=== PATIENT | male | born 1975 | race Caucasian/White ===

== ENCOUNTER 2019-09-21 23:26 | Observation (INO) ==
[2019-09-21 23:49] LABS: Basophils # 0.1 K/mm3 (0-0.2); Basophils % 0.9 % (0.1-2.0); Eosinophils # 0.6 K/mm3 (0.0-0.4); Eosinophils % 4.4 % (0.1-12.0); Hematocrit 42.2 % (42.0-52.0); Hemoglobin 14.4 g/dL (14.1-18.0); Lymphocytes # 2.9 K/mm3 (0.7-4.5); Lymphocytes % 21.3 % (10-50); Mean Corpuscular HGB Conc 34.1 g/dL (31.8-35.4); Mean Corpuscular Volume 92.9 fl (80-94); Mean Platelet Volume 8.6 fl (7.4-10.4); Monocytes # 0.9 K/mm3 (0.1-1.0); Monocytes % 6.4 % (1.7-9.3); Neutrophils % 67.1 % (37.0-80.0); Platelet Count 310 K/mm3 (142-424); Red Blood Count 4.55 M/mm3 (4.60-6.20); Red Cell Distribution Width 12.9 % (11.5-17.5); White Blood Count 13.5 K/mm3 (4.8-10.8)
--- NOTE | 2019-09-21 23:52 | Emergency Department Note ---
ED Disposition Clinical Impression: Coronary arteriosclerosis, Obesity (BMI 30-39.9), Tobacco use Chest pain Qualifiers: Chest pain type: other chest pain Qualified Code(s): R07.89 - Other chest pain Diabetes mellitus Qualifiers: Diabetes mellitus type: type 2 Diabetes mellitus assisted insulin use: unspecified assisted insulin use status Diabetes mellitus complication status: with other specified complication Qualified Code(s): E11.69 - Type 2 diabetes mellitus with other specified complication Disposition: Admitted as Observation Condition on Discharge: Good Referrals: Provider,Referral, [Referring] - - Critical Care Critical Care Time: No Attestation: On 09/21/19, the high probability of a clinically significant, sudden or life threatening deterioration of the following system(s) required my full and direct attention, intervention and personal management. The time I documented below is in addition to time spent performing reported procedures but includes the following listed in this critical care notation. Medical Decision Making - Medical Records Medical records reviewed: Yes: I reviewed the patient's medical records. - [place] Inquiry Pt receiving controlled substance: No Vital Signs: 09/21/19 23:26 09/22/19 00:29 Temperature 98.2 F Temperature Source Oral Pulse Rate [Right Radial] 91 H 88 Respiratory Rate 18 16 Blood Pressure [Left Arm] 171/89 H 148/87 H Blood Pressure Mean [Left Arm] 116 107 02 Sat by Pulse Oximetry 97 97 Oxygen Delivery Method Room Air Room Air - Lab Data Lab results reviewed: Yes: I reviewed the patient's lab results. Lab Results 09/21/19 23:33: WBC 13.5 H, RBC 4.55 L, Hgb 14.4, Hct 42.2, MCV 92.9, MCH 31.6 H , MCHC 34.1, RDW 12.9, Plt Count 310, MPV 8.6, Neut % (Auto) 67.1, Lymph % (Auto) 21.3, [place] % (Auto) 6.4, Eos % (Auto) 4.4, Baso % (Auto) 0.9, Neut # (Auto) 9.0 H, Lymph # (Auto) 2.9, [place] # (Auto) 0.9, Eos # (Auto) 0.6 H, Baso # (Auto) 0.1, ESR 27 H 09/21/19 23:33: Sodium 137, Potassium 4.6, Chloride 102, Carbon Dioxide 24, Anion Gap 15.6 H, BUN 14, Creatinine 1.10, Estimated Creat Clear 136, Estimated GFR 72, Est GFR ( Amer) 88, Glucose 169 H, Calcium 8.8, Total Bilirubin 0.4, AST 38 H, ALT 52, Alkaline Phosphatase 138 H, Troponin I < 0.02, C-Reactive Protein 0.8, Total Protein 7.8, Albumin 4.0, Globulin 3.8 H, Albumin/Globulin Ratio 1.1 09/22/19 00:30: Urine Color Yellow, Urine Appearance Clear, Urine pH 5.5, Ur Specific [place] >= 1.030, Urine Protein Trace, Urine Glucose (UA) Negative, Urine Ketones Trace, Urine Blood Trace-l, Urine Nitrate Negative, Urine Bilirubin Negative, Urine Urobilinogen 0.2, Ur Leukocyte Esterase Negative Result diagrams: 09/21/19 23:33 09/21/19 23:33 Orders (Tests/Meds): ED MEDICATIONS Discontinued Medications Generic Name Dose Route Start Last Admin Trade Name Gonzalesq PRN Reason Stop Dose Admin Aspirin 243 mg 09/22/19 00:05 09/22/19 00:08 Aspirin 81mg Chewable Tablet PO 09/22/19 00:06 243 mg ONCE ONE Administration ORDERS Category Date Time Status Chest XR 2 view (NOT portable) [XR chest 2V] Stat Exams 09/22/19 00:18 Taken Troponin I Q3H Lab 09/22/19 02:45 Ordered Troponin I Q3H Lab 09/22/19 05:45 Ordered Urinalysis and Microscopic Stat Lab 09/22/19 00:30 Results - Radiology Data #1 Image(s): Chest Image Reviewed: Yes I reviewed the patient's radiology image Preliminary Findings: Normal/NAD - ECG Data Tracing #1 Normal Sinus Rhythm: Yes Ischemic changes: non-specific ST-T wave changes - Physician Consults Physician Consulted: priscila Reason -: Admission Chest Pain HPI - General Chief Complaint: Chest Pain Stated Complaint: chest pain Time Seen by Provider: 09/21/19 23:40 Mode of Arrival: Ambulatory Source of Information: Patient, Medical Record Limitations: No Limitations Description of Symptoms (Recalled from ER Triage Doc. by RN): left scapula pain that began yesterday while he was at work. patient states he had this problem in the past and had to have 5 cardiac stents placed 2016. - History of Present Illness HPI narrative: wm with acute lt side scapular pain which is what he had with prev mi - pt had diaphorsis and nausea - has had stents in past - tob use and diabetes - MD complaint: chest pain indicative of cardiac Onset (ago): hour(s) Duration: now resolved Activity at onset: during rest Pain location: other (scapular ) Severity: moderate Quality: similar to prior [place] Pain radiation: back Associated symptoms: diaphoresis Risk Factors for CAD: Hypertension, Family Hx of CAD, Diabetes, Smoking Treatments prior to or on arrival for Cardiac Chest Pain: none - STAN Score for Non-Stemi Age of Patient: 40-49 years old Heart Rate: 90-109 bpm Systolic Blood Pressure: 160-199 mmHg Serum Creatinine: 0.80-1.19 mg/dl CHF [place] Class: I-No CHF Other Risk Factors: None Non-Stemi Risk Score: 57 - Related Data Prior Cardiac Testing/Procedures: Stenting Home Medications Medication Instructions Recorded Confirmed colchicine 0.6 mg capsule 0.6 mg PO ONCE 10/21/17 09/22/19 metformin 500 mg tablet 500 mg PO BID 10/21/17 09/22/19 Aspirin [Low Dose Aspirin EC] 81 mg PO DAILY 09/22/19 09/22/19 Atorvastatin Calcium [Lipitor 80mg 80 mg PO DAILY 09/22/19 09/22/19 Tablet] Losartan Potassium [Cozaar 50mg 50 mg PO DAILY 09/22/19 09/22/19 Tablets] Prasugrel HCl [Prasugrel 10mg 10 mg PO DAILY 09/22/19 09/22/19 Tab] carvediloL [Carvedilol 25mg Tab] 25 mg PO BID 09/22/19 09/22/19 raNITIdine HCl [Ranitidine HCl] 150 mg PO BID 09/22/19 09/22/19 Previous Rx's Medication Instructions Recorded nitroglycerin 0.4 mg sublingual 0.4 mg SUBLINGUAL Q5M PRN #30 tab 10/22/17 tablet Allergies Allergy/AdvReac Type Severity Reaction Status Date / Time No Known Allergies Allergy Verified 09/22/19 00:07 [facility] History - Hepatitis A Screen Drug use history?: No High risk sexual behaviors?: No History of sexually transmitted infection?: No Currently employed?: No Childcare worker?: No Do you have indoor plumbing?: Yes Do you have electricity?: Yes Attestation statement:: This patient has been screened for Hepatitis A risk factors. I have reviewed the patient's past medical history: Yes Medical History: Reports:: Coronary Artery Disease, Diabetes Mellitus Type 2, Hyperlipidemia Other Surgeries: Yes: No Previous Surgery, Cardiac Catheterization, Coronary Stent - Social History Smoking Status: Current every day smoker Tobacco Type: cigarettes # Packs/Day (cigarettes): 1 Alcohol Intake: never Alcohol Intake Frequency:: other Substance Use Type: denies use Occupational Status: employed Family Hx:: Coronary Artery Disease ROS Obtained: Yes All systems reviewed & no additional complaints - Constitutional Constitutional: Denies fever(s) - Eyes Eyes: Denies change in vision - ENT Ears, Nose, Mouth, and Throat: Denies sore throat - Cardiovascular Cardiovascular: Reports as per HPI, Reports chest pain at rest - Respiratory Respiratory: No cough - Gastrointestinal Gastrointestingal: Denies: abdominal pain - Genitourinary Male Genitourinary: Denies hematuria - Musculoskeletal Musculoskeletal: Denies joint pain, Denies joint swelling - Integumentary/Breasts Skin/Breast: Denies rash - Neurologic Neurologic: Denies focal weakness, Denies headache(s), Denies seizure-like activity Physical Exam - General General appearance: alert - Head Head exam: normocephalic - Eye Eye exam: Present: PERRL, EOMI. Absent: scleral icterus - ENT ENT exam: Present: mucous membranes moist - Neck Neck exam: Present: trachea midline - Respiratory Respiratory exam: Present: normal lung sounds bilaterally. Absent: respiratory distress - Cardiovascular Cardiovascular exam: Present: regular rate, systolic murmur - Abdominal Exam Abdominal exam: Present: soft - Extremities Exam Extremities exam: Present: full ROM - Neurological Exam Neurological exam: Present: alert, oriented X3, CN II-XII intact - Psychiatric Psychiatric exam: Present: normal affect - Skin Skin exam: Absent: rash
[2019-09-22 00:02] LABS: Alanine Aminotransferase 52 U/L (12-78); Albumin/Globulin Ratio 1.1 (1.1-1.8); Alkaline Phosphatase 138 U/L (46-116); Anion Gap 15.6 mEq/L (5-15); Aspartate Amino Transferase 38 U/L (15-37); Bilirubin,Total 0.4 mg/dL (0.2-1.0); Blood Urea Nitrogen 14 mg/dL (7-18); C-Reactive Protein 0.8 mg/dL (0.0-0.9); Calcium 8.8 mg/dL (8.5-10.1); Carbon Dioxide 24 mmol/L (21.0-32.0); Chloride 102 mmol/L (98-107); Globulin 3.8 gm/dl (1.3-3.2); Glucose 169 mg/dL (74-106); Sodium 137 mmol/L (136-145); Total Protein,Serum 7.8 gm/dL (6.4-8.2)
[2019-09-22 00:14] LABS: Erythrocyte Sedimentation Rate 27 mm/hr (0-15)
[2019-09-22 00:34] LABS: Microscopic, Urine URINE MICROSCOPIC (MICROSCOPIC)
[2019-09-22 00:37] LABS: Appearance,Urine CLEAR (Clear); Blood, Urine TRACE-L (Negative); Color,Urine YELLOW (Yellow); Glucose,Urine (UA) Negative (Negative); Ketones,Urine TRACE (Negative); Leukocyte Esterase,Urine Negative (Negative); PH,Urine 5.5 (5.0-8.5); Protein,Urine TRACE (Negative); Specific Gravity, Urine >= 1.030 (1.005-1.030); Urobilinogen,Urine 0.2 EU/dl (0.2)
[2019-09-22 00:38] LABS: Bilirubin,Urine Negative (Negative)
[2019-09-22 01:05] LABS: Bacteria,Urine 1+ /lpf; Mucus,Urine 1+ /lpf
[2019-09-22 06:14] LABS: Basophils # 0.1 K/mm3 (0-0.2); Eosinophils # 0.2 K/mm3 (0.0-0.4); Eosinophils % 1.3 % (0.1-12.0); Hematocrit 42.5 % (42.0-52.0); Hemoglobin 14.1 g/dL (14.1-18.0); Lymphocytes # 3.5 K/mm3 (0.7-4.5); Lymphocytes % 31.1 % (10-50); Mean Corpuscular HGB Conc 33.1 g/dL (31.8-35.4); Mean Corpuscular Volume 94.8 fl (80-94); Mean Platelet Volume 8.6 fl (7.4-10.4); Monocytes # 0.8 K/mm3 (0.1-1.0); Neutrophils # 6.7 K/mm3 (1.8-7.8); Neutrophils % 59.6 % (37.0-80.0); Platelet Count 280 K/mm3 (142-424); Red Blood Count 4.49 M/mm3 (4.60-6.20); Red Cell Distribution Width 13.1 % (11.5-17.5); White Blood Count 11.3 K/mm3 (4.8-10.8)
[2019-09-22 06:24] LABS: Anion Gap 15.5 mEq/L (5-15); Calcium 8.6 mg/dL (8.5-10.1); Chol/HDL Ratio 3.6 (1-3.5)
--- NOTE | 2019-09-22 07:21 | Pharmacy Consult Notes ---
[facility] Pharmacy VTE Monitoring - Patient Demographics Admission date: 09/22/19 Report Date: 09/22/19 Time: 07:21 Allergies/Adverse Reactions: Patient Allergies No Known Allergies Allergy (Verified 09/22/19 00:07) Height: 1.7 m Weight: 109.401 kg Patient Problems: Current Active Problems Chest pain (Acute) Obesity (BMI 30-39.9) (Acute) Tobacco use (Acute) Diabetes mellitus (Acute) Coronary arteriosclerosis (Acute) - VTE Risk Labs: VTE Related Lab Results Hgb 14.1 g/dL (14.1-18.0) 09/22/19 06:03 Hct 42.5 % (42.0-52.0) 09/22/19 06:03 Plt Count 280 K/mm3 (142-424) 09/22/19 06:03 BUN 14 mg/dL (7-18) 09/22/19 06:03 Creatinine 0.75 mg/dL (0.70-1.30) D 09/22/19 06:03 Estimated Creat Clear 192 mL/min (50-200) 09/22/19 06:03 Was VTE Risk Assessment Performed: Yes VTE Score: 7 VTE Risk Level: Moderate Risk Clinical Trial Participant: No - Prophylaxis VTE Prophylaxis Ordered?: Yes Types of VTE Prophylaxis: TEDS Knee High
--- NOTE | 2019-09-22 07:28 | History & Physical Report ---
*Admission Date: 09/22/19 *Chief complaint: Back pain *History of present illness: 43-year-old male with known coronary artery disease and previous [place] in 2016 presented to the emergency department with left periscapular back pain that was reminiscent of pain similar to his previous [place]. Patient had been at work when pain developed. He left work went home took some aspirin and then decided to come to the emergency department. In the ER he was given additional aspirin but patient admits his back discomfort had started to ease by the time he arrived to the emergency department. First EKG and troponin were unremarkable. Patient was admitted for rule out of [place] and cardiology consultation. [facility] History I have reviewed the patient's past medical history: Yes Medical History: Reports:: Coronary Artery Disease, Diabetes Mellitus Type 2, Hy perlipidemia, Hypertension, Myocardial Infarction Denies:: Cancer, Diabetes Mellitus Type 1, MRSA *Have you ever received a pneumonia vaccine?: No *Have you received a flu vaccine this season?: No Other Surgeries: Yes: No Previous Surgery, Cardiac Catheterization, Coronary Stent Fractures: Yes (R HUMURS, R HAND & FINGERS) - *Social History Educational Level: Completed High School Smoking Status: Current every day smoker Tobacco Type: cigarettes # Packs/Day (cigarettes): 1 Alcohol Intake: current Alcohol Intake Frequency:: holidays/special occasions only Substance Use Type: marijuana *Occupational Status:: employed Housing: house Household Members: spouse *Travel in the last 8 weeks: None Family Hx:: Bleeding Disorder, Coronary Artery Disease, Diabetes, Heart Attack, Hyperlipidemia, Hypertension Review of Systems - Constitutional Denies body ache(s), Denies chills - *Cardiovascular Denies chest pain, Denies chest pain at rest - *Respiratory Denies change in phlegm color, Denies chest congestion, Denies cough, Denies shortness of breath - *Gastrointestinal Reports nausea - *Neurologic Denies localized weakness, Denies headache(s), Denies seizure-like activity Meds Home Medications Medication Instructions Recorded Confirmed Type colchicine 0.6 mg capsule 0.6 mg PO ONCE 10/21/17 09/22/19 History metformin 500 mg tablet 500 mg PO BID 10/21/17 09/22/19 History nitroglycerin 0.4 mg sublingual 0.4 mg SUBLINGUAL Q5M PRN #30 tab 10/22/17 09/22/19 Rx tablet Aspirin [Low Dose Aspirin EC] 81 mg PO DAILY 09/22/19 09/22/19 History Atorvastatin Calcium [Lipitor 80mg 80 mg PO DAILY 09/22/19 09/22/19 History Tablet] Losartan Potassium [Cozaar 50mg 50 mg PO DAILY 09/22/19 09/22/19 History Tablets] Prasugrel HCl [Prasugrel 10mg 10 mg PO DAILY 09/22/19 09/22/19 History Tab] carvediloL [Carvedilol 25mg Tab] 25 mg PO BID 09/22/19 09/22/19 History raNITIdine HCl [Ranitidine HCl] 150 mg PO BID 09/22/19 09/22/19 History Allergies Allergy/AdvReac Type Severity Reaction Status Date / Time No Known Allergies Allergy Verified 09/22/19 00:07 Exam Vital signs and Labs for Last 24 Hours: Temp Pulse Resp BP Pulse Ox 98.0 F 87 16 133/85 95 09/22/19 04:00 09/22/19 04:00 09/22/19 04:00 09/22/19 04:00 09/22/19 04:00 Laboratory Results - last 24 hr 09/21/19 23:33: WBC 13.5 H, RBC 4.55 L, Hgb 14.4, Hct 42.2, MCV 92.9, MCH 31.6 H , MCHC 34.1, RDW 12.9, Plt Count 310, MPV 8.6, Neut % (Auto) 67.1, Lymph % (Auto) 21.3, [place] % (Auto) 6.4, Eos % (Auto) 4.4, Baso % (Auto) 0.9, Neut # (Auto) 9.0 H, Lymph # (Auto) 2.9, [place] # (Auto) 0.9, Eos # (Auto) 0.6 H, Baso # (Auto) 0.1, ESR 27 H 09/21/19 23:33: Sodium 137, Potassium 4.6, Chloride 102, Carbon Dioxide 24, Anion Gap 15.6 H, BUN 14, Creatinine 1.10, Estimated Creat Clear 136, Estimated GFR 72, Est GFR ( Amer) 88, Glucose 169 H, Calcium 8.8, Total Bilirubin 0.4, AST 38 H, ALT 52, Alkaline Phosphatase 138 H, Troponin I < 0.02, C-Reactive Protein 0.8, Total Protein 7.8, Albumin 4.0, Globulin 3.8 H, Albumin/Globulin Ratio 1.1 09/22/19 00:30: Urine Color Yellow, Urine Appearance Clear, Urine pH 5.5, Ur Specific [place] >= 1.030, Urine Protein Trace, Urine Glucose (UA) Negative, Urine Ketones Trace, Urine Blood Trace-l, Urine Nitrate Negative, Urine Bilirubin Negative, Urine Urobilinogen 0.2, Ur Leukocyte Esterase Negative, Urine RBC 3-5, Urine WBC 3-5, Ur Squamous Epith Cells 5-10, Urine Bacteria 1+, Hyaline Casts 10-20, Urine Mucus 1+ 09/22/19 03:10: Troponin I < 0.02 09/22/19 06:01: POC Glucose 95 09/22/19 06:03: Troponin I < 0.02 09/22/19 06:03: WBC 11.3 H, RBC 4.49 L, Hgb 14.1, Hct 42.5, MCV 94.8 H, MCH 31.4 H, MCHC 33.1, RDW 13.1, Plt Count 280, MPV 8.6, Neut % (Auto) 59.6, Lymph % (Auto) 31.1, [place] % (Auto) 7.0, Eos % (Auto) 1.3, Baso % (Auto) 1.0, Neut # (Auto) 6.7, Lymph # (Auto) 3.5, [place] # (Auto) 0.8, Eos # (Auto) 0.2, Baso # (Auto) 0.1 09/22/19 06:03: Sodium 137, Potassium 4.5, Chloride 103, Carbon Dioxide 23, Anion Gap 15.5 H, BUN 14, Creatinine 0.75 D, Estimated Creat Clear 192, Estimated GFR 113, Est GFR ( Amer) 136 D, Glucose 98 D, Calcium 8.6, Triglycerides 165, Cholesterol 116 L, LDL Cholesterol 51, VLDL Cholesterol 33, HDL Cholesterol 32, Cholesterol/HDL Ratio 3.6 H I & O for Last 24 hours: Intake & Output 09/19/19 09/20/19 09/21/19 09/22/19 11:59 11:59 11:59 11:59 Intake Total 197 / 197 Balance 197 / 197 Weight 241 lb 3 oz - *Routine HEENT Exam Head: Present: normocephalic Eye: Present: EOMI, PERRL ENT: Present: mucous membranes moist - *Routine Neck Exam Present: supple. Absent: lymphadenopathy - *Routine Respiratory Exam Present: CTA bilaterally - *Routine Cardiovascular Exam Present: RRR, Normal S1, Normal S2 - *Routine Abdominal Exam Present: soft, normoactive bowel sounds. Absent: tenderness - *Routine Extremities Exam Absent: cyanosis, clubbing, edema - *Routine Skin Exam Present: warm. Absent: rash - *Routine Neurological Exam Present: alert, oriented X3 - Detailed Eye Exam Eyelids: Left normal inspection Assessment and Plan (1) History of [place] (myocardial infarction) Current visit: Yes Status: Acute Category: Medical Code(s): I25.2 - Old myocardial infarction (2) Back pain Current visit: Yes Status: Acute Category: Medical Code(s): M54.9 - Dorsalgia, unspecified (3) Diabetes mellitus Current visit: Yes Status: Acute Qualifiers: Diabetes mellitus type: type 2 Diabetes mellitus oysterman insulin use: unspecified o[place] insulin use status Diabetes mellitus complication status: with other specified complication Qualified Code(s): E11.69 - Type 2 diabetes mellitus with other specified complication Category: Medical Code(s): E11.9 - Type 2 diabetes mellitus without complications (4) Obesity (BMI 30-39.9) Current visit: Yes Status: Acute Category: Medical Code(s): E66.9 - Obesity, unspecified (5) Tobacco use Current visit: Yes Status: Acute Category: Medical Code(s): Z72.0 - Tobacco use (6) Hyperlipidemia Current visit: No Status: Acute Qualifiers: Category: Medical Code(s): E78.5 - Hyperlipidemia, unspecified (7) Hypertensive disorder Current visit: No Status: Acute Qualifiers: Category: Medical Code(s): I10 - Essential (primary) hypertension - Assessment and plan all Dx Assessment and Plan for all problems:: Patient is chest pain-free and has ruled out for [place]. Cardiology consult this morning
--- NOTE | 2019-09-22 07:43 | Consult Report ---
History of Present Illness Consult date: 09/22/19 Requesting physician: Sahil Loredo Consult reason: chest pain Chief complaint: Back pain Additional Medical History:: 1. CAD A. 5 JEWELL to LAD, Bifurcating CX and RCA, 07/2016, [facility], Dr. Cortés 2. Diabetes/prediabetes, on metformin 3. Obesity 4. Tobacco use 5. Hypertension 6. Hyperlipidemia 7. Cholecystectomy 8. History of VSD repair as a child at age 4 months History of present illness: 43-year-old white male with known coronary artery disease presented to the emergency department last evening for onset of isolated back pain while at work. Patient does relate some recent GI upset with vomiting and diarrhea over the last couple of days. Back pain symptoms did not radiate nor were they exertional in nature. Patient was scared due to symptoms not resolving after leaving work and came to the emergency department for evaluation. The symptoms are somewhat reminiscent of his prior angina symptoms at the time of his acute coronary syndrome in 2015. EKG showed sinus rhythm with no acute ST segment changes. Troponins overnight have returned normal times 3. Cardiology consulted for evaluation recommendations. Preliminary echocardiogram this morning shows preserved ejection fraction with no significant valvular heart disease. Patient has had no further discomfort overnight. [facility] History Medical History: Reports:: Coronary Artery Disease, Diabetes Mellitus Type 2, Hyperlipidemia, Hypertension, Myocardial Infarction Denies:: Cancer, Diabetes Mellitus Type 1, MRSA *Have you ever received a pneumonia vaccine?: No *Have you received a flu vaccine this season?: No Other Surgeries: Yes: No Previous Surgery, Cardiac Catheterization, Coronary Stent Fractures: Yes (R HUMURS, R HAND & FINGERS) - *Social History Educational Level: Completed High School Smoking Status: Current every day smoker Tobacco Type: cigarettes # Packs/Day (cigarettes): 1 Alcohol Intake: current Alcohol Intake Frequency:: holidays/special occasions only Substance Use Type: marijuana *Occupational Status:: employed Housing: house Household Members: spouse *Travel in the last 8 weeks: None Family Hx:: Bleeding Disorder, Coronary Artery Disease, Diabetes, Heart Attack, Hyperlipidemia, Hypertension Meds Home Medications Medication Instructions Recorded Confirmed Type colchicine 0.6 mg capsule 0.6 mg PO ONCE 10/21/17 09/22/19 History metformin 500 mg tablet 500 mg PO BID 10/21/17 09/22/19 History nitroglycerin 0.4 mg sublingual 0.4 mg SUBLINGUAL Q5M PRN #30 tab 10/22/17 09/22/19 Rx tablet Aspirin [Low Dose Aspirin EC] 81 mg PO DAILY 09/22/19 09/22/19 History Atorvastatin Calcium [Lipitor 80mg 80 mg PO DAILY 09/22/19 09/22/19 History Tablet] Losartan Potassium [Cozaar 50mg 50 mg PO DAILY 09/22/19 09/22/19 History Tablets] Prasugrel HCl [Prasugrel 10mg 10 mg PO DAILY 09/22/19 09/22/19 History Tab] carvediloL [Carvedilol 25mg Tab] 25 mg PO BID 09/22/19 09/22/19 History raNITIdine HCl [Ranitidine HCl] 150 mg PO BID 09/22/19 09/22/19 History Allergies Allergy/AdvReac Type Severity Reaction Status Date / Time No Known Allergies Allergy Verified 09/22/19 00:07 Review of Systems - Review of Systems Review of systems:: pertinent systems reviewed and negative unless documented below - *Cardiovascular Denies chest pain - *Respiratory Denies shortness of breath with activity - *Gastrointestinal Reports loose stools, Reports nausea, Reports vomiting - *Genitourinary Reports blood in urine - *Musculoskeletal Reports back pain, Denies joint pain - *Neurologic Denies localized weakness, Denies headache(s), Denies seizure-like activity Exam Vital signs and Labs for Last 24 Hours: Temp Pulse Resp BP Pulse Ox 98.0 F 87 16 133/85 95 09/22/19 04:00 09/22/19 04:00 09/22/19 04:00 09/22/19 04:00 09/22/19 04:00 Laboratory Results - last 24 hr 09/21/19 23:33: WBC 13.5 H, RBC 4.55 L, Hgb 14.4, Hct 42.2, MCV 92.9, MCH 31.6 H , MCHC 34.1, RDW 12.9, Plt Count 310, MPV 8.6, Neut % (Auto) 67.1, Lymph % (Auto) 21.3, Cloud % (Auto) 6.4, Eos % (Auto) 4.4, Baso % (Auto) 0.9, Neut # (Auto) 9.0 H, Lymph # (Auto) 2.9, [place] # (Auto) 0.9, Eos # (Auto) 0.6 H, Baso # (Auto) 0.1, ESR 27 H 09/21/19 23:33: Sodium 137, Potassium 4.6, Chloride 102, Carbon Dioxide 24, Anion Gap 15.6 H, BUN 14, Creatinine 1.10, Estimated Creat Clear 136, Estimated GFR 72, Est GFR ( Amer) 88, Glucose 169 H, Calcium 8.8, Total Bilirubin 0.4, AST 38 H, ALT 52, Alkaline Phosphatase 138 H, Troponin I < 0.02, C-Reactive Protein 0.8, Total Protein 7.8, Albumin 4.0, Globulin 3.8 H, Albumin/Globulin Ratio 1.1 09/22/19 00:30: Urine Color Yellow, Urine Appearance Clear, Urine pH 5.5, Ur Specific [place] >= 1.030, Urine Protein Trace, Urine Glucose (UA) Negative, Urine Ketones Trace, Urine Blood Trace-l, Urine Nitrate Negative, Urine Bilirubin Negative, Urine Urobilinogen 0.2, Ur Leukocyte Esterase Negative, Uri ne RBC 3-5, Urine WBC 3-5, Ur Squamous Epith Cells 5-10, Urine Bacteria 1+, Hyaline Casts 10-20, Urine Mucus 1+ 09/22/19 03:10: Troponin I < 0.02 09/22/19 06:01: POC Glucose 95 09/22/19 06:03: Troponin I < 0.02 09/22/19 06:03: WBC 11.3 H, RBC 4.49 L, Hgb 14.1, Hct 42.5, MCV 94.8 H, MCH 31.4 H, MCHC 33.1, RDW 13.1, Plt Count 280, MPV 8.6, Neut % (Auto) 59.6, Lymph % (Auto) 31.1, Cloud % (Auto) 7.0, Eos % (Auto) 1.3, Baso % (Auto) 1.0, Neut # (Auto) 6.7, Lymph # (Auto) 3.5, Cloud # (Auto) 0.8, Eos # (Auto) 0.2, Baso # (Auto) 0.1 09/22/19 06:03: Sodium 137, Potassium 4.5, Chloride 103, Carbon Dioxide 23, Anion Gap 15.5 H, BUN 14, Creatinine 0.75 D, Estimated Creat Clear 192, Estimated GFR 113, Est GFR ( Amer) 136 D, Glucose 98 D, Calcium 8.6, Triglycerides 165, Cholesterol 116 L, LDL Cholesterol 51, VLDL Cholesterol 33, HDL Cholesterol 32, Cholesterol/HDL Ratio 3.6 H I & O for Last 24 hours: Intake & Output 09/19/19 09/20/19 09/21/19 09/22/19 11:59 11:59 11:59 11:59 Intake Total 197 / 197 Balance 197 / 197 Weight 241 lb 3 oz - *Routine HEENT Exam Head: Present: normocephalic Eye: Present: EOMI, PERRL ENT: Present: mucous membranes moist - *Routine Neck Exam Present: supple. Absent: JVD, carotid bruit - *Routine Respiratory Exam Present: CTA bilaterally. Absent: accessory muscle use, rales, rhonchi, wheezes - *Routine Cardiovascular Exam Present: RRR. Absent: murmur, gallop, rubs - *Routine Abdominal Exam Present: soft. Absent: tenderness, distended, guarding - *Routine Extremities Exam Absent: edema, calf tenderness - *Routine Neurological Exam Present: alert, oriented X3, moving all extremities Assessment and Plan (1) History of NC (myocardial infarction) Current visit: Yes Status: Acute Category: Medical Code(s): I25.2 - Old myocardial infarction (2) Back pain Current visit: Yes Status: Acute Category: Medical Code(s): M54.9 - Dorsalgia, unspecified (3) Diabetes mellitus Current visit: Yes Status: Acute Qualifiers: Diabetes mellitus type: type 2 Diabetes mellitus senior living insulin use: unspecified intermodal customer service insulin use status Diabetes mellitus complication status: with other specified complication Qualified Code(s): E11.69 - Type 2 diabetes mellitus with other specified complication Category: Medical Code(s): E11.9 - Type 2 diabetes mellitus without complications (4) Obesity (BMI 30-39.9) Current visit: Yes Status: Acute Category: Medical Code(s): E66.9 - Obesity, unspecified (5) Tobacco use Current visit: Yes Status: Acute Category: Medical Code(s): Z72.0 - Tobacco use (6) Hyperlipidemia Current visit: No Status: Acute Qualifiers: Category: Medical Code(s): E78.5 - Hyperlipidemia, unspecified (7) Hypertensive disorder Current visit: No Status: Acute Qualifiers: Category: Medical Code(s): I10 - Essential (primary) hypertension - Assessment and plan all Dx Assessment and Plan for all problems:: 1. Back pain with normal troponins, EKG without acute changes and preliminary echo with normal LVEF, will recommend proceeding with GXT myoview today. 2. Continue home meds 3. If GXT myoview normal, then home this evening with follow up next week.
--- NOTE | 2019-09-22 14:03 | Cardiology Report ---
APPROVED REPORT EXAM: Comprehensive 2D, Doppler, and color-flow Echocardiogram Reservation Sales Agent: Teri Bliss RT(R) Ht: 5 ft 7 in Wt: 250lbs BSA: 2.22 BP: 130/80 mmHg Indications: Chest Pain, CAD 2D Dimensions LVOT 1.90 cm (M/F) 1.5-2.5 M-Mode Dimensions RVDd 2.51 cm (0.9-2.6)LVDd 4.80 cm (3.5-5.7) LVDs 3.53 cm (3.5-5.7)IVSd 0.89 cm (0.6-1.1) PWd 0.72 cm (0.6-1.1)EF (Teich) 51.70% FS 26.50% EDV (Teich) 107.50 mL ESV (Teich) 51.90 mL LV Diastology E/A Ratio 0.89 Mitral Valve MV A Velocity 65.00 (40-130 cm/s) Left Ventricle Left atrium is mildly enlarged, left ventricle is normal size, mild concentric left ventricular hypertrophy, visually estimated ejection fraction 50%, there is moderate hypokinesis involving the inferior basal wall. Grade 1 diastolic dysfunction seen without tissue Doppler evidence of raise left atrial pressure. Right Ventricle Right atrium and right ventricular normal size and contractility. Aortic Valve Aortic valve is minimally thickened and fibrosed, there is no aortic stenosis or aortic insufficiency. Mitral Valve Mitral valve is grossly normal, there is mild mitral regurgitation. Tricuspid Valve Tricuspid valve is grossly normal, there is mild tricuspid regurgitation. Pulmonic Valve Pulmonic valve is poorly visualized. Great Vessels Aortic root is normal size. Pericardium No significant pericardial effusion noted. Conclusion 1. Mildly enlarged left atrium, normal left ventricular size, mild concentric left ventricular hypertrophy, visually estimated ejection fraction 50% with segmental wall motion abnormality described above, grade 1 diastolic dysfunction seen without tissue Doppler evidence of raise left atrial pressure. 2. Mild mitral and tricuspid regurgitation. 3. No significant pericardial effusion noted. Electronically signed by : Alberto Cat, 09/22/2019 14:02:47
--- NOTE | 2019-09-22 16:59 | Discharge Summary ---
General - General Admission date:: 09/22/19 Discharge date: 09/22/19 HPI HPI: 43-year-old male with known coronary artery disease and previous VA in 2015 presented to the emergency department with left periscapular back pain that was reminiscent of pain similar to his previous VA. Patient had been at work when pain developed. He left work went home took some aspirin and then decided to come to the emergency department. In the ER he was given additional aspirin but patient admits his back discomfort had started to ease by the time he arrived to the emergency department. First EKG and troponin were unremarkable. Patient was admitted for rule out of VA and cardiology consultation. Hospital Course Hospital Course: Patient was admitted and ruled out for VA with serial troponins. Echocardiogram was performed which showed an ejection fraction of 50%. Cardiology was consulted and stress test was ordered. Stress test was abnormal and it was decided to proceed with left heart catheterization. Left heart catheterization will be performed as an outpatient on September 25. Patient was discharged home. Objective Vital signs: Temp Pulse Resp BP Pulse Ox 98.1 F 75 20 133/71 92 L 09/22/19 16:00 09/22/19 16:00 09/22/19 16:00 09/22/19 16:00 09/22/19 16:00 Results Labs on day of discharge: Labs from last 24 hours 09/22/19 09/22/19 09/22/19 11:03 06:03 06:03 WBC 11.3 H RBC 4.49 L Hgb 14.1 Hct 42.5 MCV 94.8 H MCH 31.4 H MCHC 33.1 RDW 13.1 Plt Count 280 MPV 8.6 Neut % (Auto) 59.6 Lymph % (Auto) 31.1 [place] % (Auto) 7.0 Eos % (Auto) 1.3 Baso % (Auto) 1.0 Neut # (Auto) 6.7 Lymph # (Auto) 3.5 [place] # (Auto) 0.8 Eos # (Auto) 0.2 Baso # (Auto) 0.1 ESR Sodium 137 Potassium 4.5 Chloride 103 Carbon Dioxide 23 Anion Gap 15.5 H BUN 14 Creatinine 0.75 D Estimated Creat Clear 192 Estimated GFR 113 Est GFR ( Amer) 136 D Glucose 98 D POC Glucose 108 Calcium 8.6 Total Bilirubin AST ALT Alkaline Phosphatase Troponin I C-Reactive Protein Total Protein Albumin Globulin Albumin/Globulin Ratio Triglycerides 165 Cholesterol 116 L LDL Cholesterol 51 VLDL Cholesterol 33 HDL Cholesterol 32 Cholesterol/HDL Ratio 3.6 H Urine Color Urine Appearance Urine pH Ur Specific [place] Urine Protein Urine Glucose (UA) Urine Ketones Urine Blood Urine Nitrate Urine Bilirubin Urine Urobilinogen Ur Leukocyte Esterase Urine RBC Urine WBC Ur Squamous Epith Cells Urine Bacteria Hyaline Casts Urine Mucus 09/22/19 09/22/19 09/22/19 06:03 06:01 03:10 WBC RBC Hgb Hct MCV MCH MCHC RDW Plt Count MPV Neut % (Auto) Lymph % (Auto) [place] % (Auto) Eos % (Auto) Baso % (Auto) Neut # (Auto) Lymph # (Auto) [place] # (Auto) Eos # (Auto) Baso # (Auto) ESR Sodium Potassium Chloride Carbon Dioxide Anion Gap BUN Creatinine Estimated Creat Clear Estimated GFR Est GFR ( Amer) Glucose POC Glucose 95 Calcium Total Bilirubin AST ALT Alkaline Phosphatase Troponin I < 0.02 < 0.02 C-Reactive Protein Total Protein Albumin Globulin Albumin/Globulin Ratio Triglycerides Cholesterol LDL Cholesterol VLDL Cholesterol HDL Cholesterol Cholesterol/HDL Ratio Urine Color Urine Appearance Urine pH Ur Specific [place] Urine Protein Urine Glucose (UA) Urine Ketones Urine Blood Urine Nitrate Urine Bilirubin Urine Urobilinogen Ur Leukocyte Esterase Urine RBC Urine WBC Ur Squamous Epith Cells Urine Bacteria Hyaline Casts Urine Mucus 09/22/19 09/21/19 09/21/19 00:30 23:33 23:33 WBC 13.5 H RBC 4.55 L Hgb 14.4 Hct 42.2 MCV 92.9 MCH 31.6 H MCHC 34.1 RDW 12.9 Plt Count 310 MPV 8.6 Neut % (Auto) 67.1 Lymph % (Auto) 21.3 [place] % (Auto) 6.4 Eos % (Auto) 4.4 Baso % (Auto) 0.9 Neut # (Auto) 9.0 H Lymph # (Auto) 2.9 [place] # (Auto) 0.9 Eos # (Auto) 0.6 H Baso # (Auto) 0.1 ESR 27 H Sodium 137 Potassium 4.6 Chloride 102 Carbon Dioxide 24 Anion Gap 15.6 H BUN 14 Creatinine 1.10 Estimated Creat Clear 136 Estimated GFR 72 Est GFR ( Amer) 88 Glucose 169 H POC Glucose Calcium 8.8 Total Bilirubin 0.4 AST 38 H ALT 52 Alkaline Phosphatase 138 H Troponin I < 0.02 C-Reactive Protein 0.8 Total Protein 7.8 Albumin 4.0 Globulin 3.8 H Albumin/Globulin Ratio 1.1 Triglycerides Cholesterol LDL Cholesterol VLDL Cholesterol HDL Cholesterol Cholesterol/HDL Ratio Urine Color Yellow Urine Appearance Clear Urine pH 5.5 Ur Specific [place] >= 1.030 Urine Protein Trace Urine Glucose (UA) Negative Urine Ketones Trace Urine Blood Trace-l Urine Nitrate Negative Urine Bilirubin Negative Urine Urobilinogen 0.2 Ur Leukocyte Esterase Negative Urine RBC 3-5 Urine WBC 3-5 Ur Squamous Epith Cells 5-10 Urine Bacteria 1+ Hyaline Casts 10-20 Urine Mucus 1+ DS: Diagnosis - Discharge Diagnosis (1) Unstable angina Status: Acute (2) History of VA (myocardial infarction) Status: Acute (3) Back pain Status: Acute (4) Diabetes mellitus Status: Acute (5) Obesity (BMI 30-39.9) Status: Acute (6) Tobacco use Status: Acute (7) Hyperlipidemia Status: Acute (8) Hypertensive disorder Status: Acute (9) Abnormal stress test Status: Acute Discharge Plan - Patient Discharge Instructions ACTIVITY: Continue current activity DIET: continue same diet Patient Instructions: DI for Chest Pain - Follow up Plan Follow up with: Thaddeus Cortés MD [Staff Physician] - (Call the office Wednesday morning for a follow up appointment in 1 wk.) Sahil Loredo MD [Primary Care Provider] - (Call the office Wednesday morning for a follow up appointment for 1 wk.) Disposition: Home, Self-Snf Medications: Home Medications Medication Instructions Recorded Confirmed Type colchicine 0.6 mg capsule 0.6 mg PO DAILY 10/21/17 09/22/19 History metformin 500 mg tablet 500 mg PO BID 10/21/17 09/22/19 History Aspirin [Low Dose Aspirin EC] 81 mg PO DAILY 09/22/19 09/22/19 History Atorvastatin Calcium [Lipitor 80mg 80 mg PO HS 09/22/19 09/22/19 History Tablet] Losartan Potassium [Cozaar 50mg 50 mg PO DAILY 09/22/19 09/22/19 History Tablets] Prasugrel HCl [Prasugrel 10mg 10 mg PO DAILY 09/22/19 09/22/19 History Tab] carvediloL [Carvedilol 25mg Tab] 25 mg PO BID 09/22/19 09/22/19 History raNITIdine HCl [Ranitidine HCl] 150 mg PO BID 09/22/19 09/22/19 History Prescriptions/Medication Reconciliation: Continued colchicine 0.6 mg capsule 0.6 mg PO DAILY metformin 500 mg tablet 500 mg PO BID Prasugrel HCl [Prasugrel 10mg Tab] 10 mg PO DAILY carvediloL [Carvedilol 25mg Tab] 25 mg PO BID Atorvastatin Calcium [Lipitor 80mg Tablet] 80 mg PO HS Aspirin [Low Dose Aspirin EC] 81 mg PO DAILY raNITIdine HCl [Ranitidine HCl] 150 mg PO BID Losartan Potassium [Cozaar 50mg Tablets] 50 mg PO DAILY - Problem Reconciliation Problems Reviewed?: Yes
--- NOTE | 2019-09-23 14:21 | Electrocardiograph Report ---
APPROVED REPORT Exam: Resting ECG HR:94 bpm ECG Measurements Heart Rate 94 AXES AL 174 P 20 QRSd 88 QRS 33 QT 352 T45 QTc 440 <Conclusion> Normal sinus rhythm Normal ECG Electronically signed by : Sahil Delaney, 09/23/2019 14:20:32
--- NOTE | 2019-09-26 05:42 | Cardiology Report ---
APPROVED REPORT Exam: Pharmacologic Technologist: Lilli Lugo Ht: 5 ft 7 in Wt: 241 lbs BSA: 2.19 m2 HR: 84 bpm BP: 175/90 mmHg Medical History Medical History: HTN, Hyperlipidemia, Diabetic Noninsulin Medications: Irbesartan,,,,, Aspirin,,,,, Metformin,,,,, Carvedilol,,,,, Acetaminophen,,,,, AtrovASTATIN,,,,, Prasugel,,,,, Allergies: No known drug allergies Stress Test Details Test: LEXISCAN HR Resting HR: 84 bpmMax Heart Rate (APMHR): 175 bpm Max HR Achieved: 109 bpmTarget HR (85% APMHR): 148 bpm % of APMHR: 62 Recovery HR: 96 bpm BP Resting BP: 175.0/90.0 mmHg Max BP: 182.0/89.0 mmHg Recovery BP: 141.0/79.0 mmHg ECG Clinical Reason for Termination: Completed Protocol Exercise duration: 04:04 min Highest Stage Achieved: Stress ECG Conclusion DURING INFUSION PATIENT HAD NO CHEST PAIN. FREQUENT PVC'S. <1.5MM ST SEGMENT CHANGES. NON-DIAGNOSTIC TEST Test Summary LCVJOGGU87:13..95.130/ 63.. REST01:34..83.175/ 90.. Stage 1.......Cardiolite injected Stage 101:00..106.... Stage 201:00..105.182/ 89.. Stage 301:00..104.148/ 84.. Stage 401:00..96.155/ 86.. Stage 401:04..97.155/ 86.Stop exercise at 04:04 QEMTHHRV19:00..98.... PGJSTHOL73:00..93.... PLRSSPGP61:00..90.... YLEIAYCP11:00..97.130/ 63.. NUCVACBW85:13..95.130/ 63.. Electronically signed by : Alberto Cat, 09/26/2019 05:42:21
== END 2019-09-22 15:20 | disposition home or self-care (01) ==
LOC: 2ND 23:26 → ER 23:26 → 2ND 09-22 01:37
PROVIDERS: ADMIT Family Medicine; ATTEND Family Medicine
CPT/HCPCS: 36415; 71020; 71046; 78452; 80048; 80053; 80061; 81001; 82962; 84484; 85025; 85651; 86140; 93005; 93017; 93306; 99284; A9502; G0378; J2785

== ENCOUNTER 2020-06-18 05:20 | Emergency (ER) | payer BC, SELFPAY ==
[2020-06-18 05:30] VITALS: BP 187/100; PULSE 86; RESP 17; TEMP 36.6; O2SAT 96; BMI 40.3
--- NOTE | 2020-06-18 06:05 | HMH.EDDENT ---
ED Disposition Clinical Impression: Dental caries, Gingival bleeding Disposition: Home, Self-Care Condition on Discharge: Good Instructions: DI for Tooth Decay Additional Instructions: call dentist and tea bags and call card about meds Prescriptions: clindamycin HCL [Clindamycin HCl 300mg Cap] 300 mg PO Q8 #30 cap Transmission Status: Pending to [facility] Referrals: Sahil Loredo MD [Primary Care Provider] - - Critical Care Critical Care Time: No Attestation: On 06/18/20, the high probability of a clinically significant, sudden or life threatening deterioration of the following system(s) required my full and direct attention, intervention and personal management. The time I documented below is in addition to time spent performing reported procedures but includes the following listed in this critical care notation. Medical Decision Making - Medical Records Medical records reviewed: Yes: I reviewed the patient's medical records. - [place] Inquiry Pt receiving controlled substance: No Vital Signs: 06/18/20 05:30 Temperature 97.8 F Temperature Source Oral Pulse Rate [Right Brachial] 86 Respiratory Rate 17 Blood Pressure [Right Arm] 187/100 H Blood Pressure Mean [Right Arm] 129 Blood Pressure Source [Right Arm] Automatic Cuff Blood Pressure Position [Right Arm] Sitting 02 Sat by Pulse Oximetry 96 Oxygen Delivery Method Room Air Dental HPI - General Chief complaint: Dental/Oral Stated complaint: Mouth Bleeding,Patient is on blood thinner Time Seen by Provider: 06/18/20 05:35 Mode of Arrival: Ambulatory Source of Information: Patient, Medical Record Limitations: No Limitations Description of Symptoms (Recalled from ER Triage Doc. by RN): Patient reports he has had a tooth ache since yesterday and today around 0430 he woke up with blood in his mouth and cant get it to stop bleeding. Patient is concerned because he is on blood thinners. - History of Present Illness HPI Narrative: bleeding from rt upper gum line Onset (ago): hour(s) Duration: intermittent Severity: moderate Context: poor dental care Associated symptoms: other (bleeding from gums ) Treatment prior to arrival: none - Related Data Home Medications Medication Instructions Recorded Confirmed colchicine 0.6 mg capsule 0.6 mg PO DAILY 10/21/17 06/18/20 metformin 500 mg tablet 500 mg PO BID 10/21/17 06/18/20 Aspirin [Low Dose Aspirin EC] 81 mg PO DAILY 06/18/20 06/18/20 Atorvastatin Calcium [Lipitor 80mg 80 mg PO DAILY 06/18/20 06/18/20 Tablet*] Losartan Potassium [Cozaar 100mg 100 mg PO DAILY 06/18/20 06/18/20 Tablets] Prasugrel HCl 10 mg PO DAILY 06/18/20 06/18/20 carvediloL [Carvedilol 25mg Tab] 25 mg PO BID 06/18/20 06/18/20 Previous Rx's Medication Instructions Recorded furosemide 20 mg tablet 20 mg PO DAILY PRN #30 tab 03/11/20 clindamycin HCL [Clindamycin HCl 300 mg PO Q8 #30 cap 06/18/20 300mg Cap] Allergies Allergy/AdvReac Type Severity Reaction Status Date / Time No Known Allergies Allergy Verified 10/31/19 11:41 [facility] History - Hepatitis A Screen Drug use history?: No High risk sexual behaviors?: No History of sexually transmitted infection?: No Currently employed?: No Childcare worker?: No Do you have indoor plumbing?: Yes Do you have electricity?: Yes Attestation statement:: This patient has been screened for Hepatitis A risk factors. I have reviewed the patient's past medical history: Yes Medical History: Reports:: Coronary Artery Disease, Diabetes Mellitus Type 2, Hyperlipidemia, Hypertension, Myocardial Infarction Denies:: Cancer, Diabetes Mellitus Type 1, MRSA Other Surgeries: Yes: No Previous Surgery, Cardiac Catheterization, Coronary Stent Fractures: Yes (R HUMURS, R HAND & FINGERS) - Social History Smoking Status: Current every day smoker Tobacco Type: cigarettes # Packs/Day (cigarettes): 1 Alcohol Intake: former Alcohol Intake Frequency:: solange
[2020-06-18 06:15] VITALS: BP 170/83; PULSE 86; RESP 16; TEMP 36.7; O2SAT 96
--- NOTE | 2020-06-18 06:15 | PC.NURSE ---
return call from [facility], [place].
== END 2020-06-18 06:25 | disposition home or self-care (01) ==
PROVIDERS: Emergency Provider Emergency Medicine; PCP Family Medicine
DX: K06.8 Other specified disorders of gingiva and edentulous alveolar ridge (principal); K02.9 Dental caries, unspecified; Z79.01 Long term (current) use of anticoagulants; I25.10 Atherosclerotic heart disease of native coronary artery without angina pectoris; E11.9 Type 2 diabetes mellitus without complications; I10 Essential (primary) hypertension; E78.5 Hyperlipidemia, unspecified; F17.210 Nicotine dependence, cigarettes, uncomplicated
CPT/HCPCS: 99281

== ENCOUNTER 2020-11-04 12:19 | Emergency (ER) | payer BC, SELFPAY ==
[2020-11-04 12:20] VITALS: BP 179/85; PULSE 82; RESP 14; TEMP 36.4; O2SAT 93; BMI 39.1
--- NOTE | 2020-11-04 13:45 | HMH.EDUTC ---
[facility] [place] Clinical Impression: Viral syndrome, Exposure to COVID-19 virus Sinusitis Qualifiers: Sinusitis location: unspecified location Chronicity: acute Recurrence: non-recurrent Qualified Code(s): J01.90 - Acute sinusitis, unspecified Disposition: Home, Self-Care Condition on Discharge: Good Instructions: Sinusitis, DI for Sinusitis Additional Instructions: Drink plenty of fluids. Take tylenol for pain or fever. Return if you begin to have difficulty breathing. Follow up with your regular doctor. GO TO THE ER FOR ANY WORSENING SYMPTOMS Prescriptions: Azithromycin [Z-Kb 250mg Tab*] 250 mg PO UD DOSE PK #6 tab Transmission Status: Received by [facility] [employer] Referrals: Sahil Loredo MD [Primary Care Provider] - Forms: Work/School Release Time of Disposition: 13:51 Medical Decision Making - Medical Records Medical records reviewed: No: I reviewed the patient's medical records. - [place] Inquiry Pt receiving controlled substance: No Vital Signs: 11/04/20 12:20 11/04/20 13:53 Temperature 97.5 F L 97.5 F L Temperature Source Oral Pulse Rate 82 Pulse Rate [Right Brachial] 82 Respiratory Rate 14 14 Blood Pressure 179/85 H Blood Pressure [Right Arm] 179/85 H Blood Pressure Mean [Right Arm] 116 Blood Pressure Source [Right Arm] Automatic Cuff Blood Pressure Position [Right Arm] Sitting 02 Sat by Pulse Oximetry 93 L Oxygen Delivery Method Room Air [facility] [place] HPI - General Stated complaint: covid symtoms Time Seen by Provider: 11/04/20 13:47 Mode of Arrival: Ambulatory Source of Information: Patient Limitations: No Limitations Description of Symptoms (Recalled from Triage Doc. by RN): PATIENT C/O WEAKNESS, NAUSEA, HEADACHE, AND BODY ACHES SINCE LAST NIGHT. REQUESTING COVID TEST HEENT Symptoms (Recalled from RN notes): No Resp Symptoms (Recalled from RN notes): No Skin Symptoms (Recalled from RN notes): No MS Symptoms (Recalled from RN notes): No Functional Status (Recalled from RN notes): WNL - History of Present Illness Provider Complaint: He states that he has been having head ache, sinus congestion, and body aches since yesterday. He denies any known exposure to covid-19. - Related Data Home Medications Medication Instructions Recorded Confirmed colchicine 0.6 mg capsule 0.6 mg PO DAILY 10/21/17 06/18/20 metformin 500 mg tablet 500 mg PO BID 10/21/17 06/18/20 Previous Rx's Medication Instructions Recorded clindamycin HCL [Clindamycin HCl 300 mg PO Q8 #30 cap 06/18/20 300mg Cap] furosemide 20 mg tablet 20 mg PO DAILY PRN #30 tab 08/27/20 aspirin 81 mg tablet,delayed See Rx Instructions .ROUTE 10/02/20 release .COMPLEX #30 each atorvastatin 80 mg tablet See Rx Instructions .ROUTE 10/02/20 .COMPLEX #30 tab carvedilol 25 mg tablet See Rx Instructions .ROUTE 10/02/20 .COMPLEX #60 tab losartan 100 mg tablet See Rx Instructions .ROUTE 10/02/20 .COMPLEX #30 tab prasugrel 10 mg tablet See Rx Instructions .ROUTE 10/02/20 .COMPLEX #30 tab Azithromycin [Z-Kb 250mg Tab*] 250 mg PO UD DOSE PK #6 tab 11/04/20 Allergies Allergy/AdvReac Type Severity Reaction Status Date / Time No Known Allergies Allergy Verified 10/31/19 11:41 - Worker's Comp Is this a Worker's Comp case?: No [facility] History - Hepatitis A Screen Drug use history?: No High risk sexual behaviors?: No History of sexually transmitted infection?: No Currently employed?: No Childcare worker?: No Do you have indoor plumbing?: Yes Do you have electricity?: Yes Attestation statement:: This patient has been screened for Hepatitis A risk factors. I have reviewed the patient's past medical history: Yes Medical History: Reports:: Coronary Artery Disease, Diabetes Mellitus Type 2, Hyperlipidemia, Hypertension, Myocardial Infarction Denies:: Cancer, Diabetes Mellitus Type 1, MRSA Laterality Cases: Bilateral: Myringotomy (Ear Tubes) Other Surgeries: Yes: No Previous Surger
[2020-11-04 13:53] VITALS: BP 179/85; PULSE 82; RESP 14; TEMP 36.4; O2SAT 93
== END 2020-11-04 13:55 | disposition home or self-care (01) ==
PROVIDERS: Emergency Provider Nurse Practitioner Family; PCP Family Medicine
DX: Z20.822 Contact with and (suspected) exposure to COVID-19 (principal); B34.9 Viral infection, unspecified; J01.90 Acute sinusitis, unspecified; E11.9 Type 2 diabetes mellitus without complications; E78.5 Hyperlipidemia, unspecified; I10 Essential (primary) hypertension; I25.10 Atherosclerotic heart disease of native coronary artery without angina pectoris; I25.2 Old myocardial infarction; F17.210 Nicotine dependence, cigarettes, uncomplicated; Z79.899 Other long term (current) drug therapy
CPT/HCPCS: 99202; G0463; U0003

== ENCOUNTER 2021-05-12 09:08 | Emergency (ER) | payer BC, SELFPAY ==
[2021-05-12 09:30] VITALS: BP 161/101; PULSE 75; RESP 20; TEMP 37; O2SAT 96; BMI 39.1
--- NOTE | 2021-05-12 10:11 | HMH.EDUTC ---
[facility] [place] Disposition Clinical Impression: Sinusitis Qualifiers: Sinusitis location: unspecified location Chronicity: unspecified Qualified Code(s): J32.9 - Chronic sinusitis, unspecified Disposition: Home, Self-Care Condition on Discharge: Good Instructions: Sinusitis, DI for Sinusitis, DI for COVID-19 (Suspected or Confirmed ), Preventing the Spread of Coronavirus Discharge Instructions Additional Instructions: *Monitor Temp, Over the counter Motrin or Tylenol as directed/as needed Tylenol every 4 hours and Motrin every 6 hours (as long as your family doctor has told you that you can take it) for fever or pa-in. and straight to ER if unable to lower temp less than 101.0 after medication given *Warm salt water gargles may help to soothe the throat *Throat Lozenges *Warm fluids like tea with honey may help to soothe the throat *Sleep elevated *Humidifier/Vaporizer *Flonase 2 sprays in each nostril daily but be aware that it may take 2-3 days before you notice improvement Your throat swab was sent for culture. Those results are typically sent to your primary care. Be sure to follow up in 2-3 days with your family doctor/primary care physician if no improvement so they can review those result and treat if necessary. If you don?t have a primary care doctor, I recommend you get one but in the mean time, you will have to return to a walk in clinic Follow up IMMEDIATELY for new or worsening symptoms or no Noticeable improvement over the next 48-72 hours. 911 for difficulty breathing or swallowing You were tested for today for COVID19 your test result should be back in the next 24-48 hours, Check the [facility] Portal to see if your test results are back in the next 48 it may say detected that means your result is positive.You was given handout instructions on how log on and see your results. If you do not have internet access you may call the [facility] for your results [phone] You was given a handout with instructions for Self Quarantine and Self isolation for while you wait on test results and what to do if they are positive If you are positive the Health Dept will be contacting you also Make sure to take your Vitamins Vit. C Vit D and Zinc if you can take them Prescriptions: Amoxicillin/Potassium Clav [Augmentin 875125 Tablet] 1 tab PO Q12H 7 Days #14 tab Transmission Status: [facility] Referrals: Sahil Loredo MD [Primary Care Provider] - Forms: Work/School Release Time of Disposition: 10:18 Medical Decision Making - [place] Inquiry Pt receiving controlled substance: No [place] was queried for this patient: No Vital Signs: 05/12/21 09:30 Temperature 98.6 F Temperature Source Oral Pulse Rate [Right Brachial] 75 Respiratory Rate 20 Blood Pressure [Right Arm] 161/101 H Blood Pressure Mean [Right Arm] 121 Blood Pressure Source [Right Arm] Automatic Cuff Blood Pressure Position [Right Arm] Sitting 02 Sat by Pulse Oximetry 96 Oxygen Delivery Method Room Air - Lab Data Lab results reviewed: Yes: I reviewed the patient's lab results. Orders (Tests/Meds): ORDERS Category Date Time Status Covid-19 Nasal PCR ([facility]) Routine Lab 05/12/21 09:09 Ordered [facility] UTC HPI - General Stated complaint: covid test exposure Time Seen by Provider: 05/12/21 10:11 Mode of Arrival: Ambulatory Source of Information: Patient Limitations: No Limitations Description of Symptoms (Recalled from Triage Doc. by RN): PATIENT C/O CHILLS, FEVER, SORE THROAT, HEADACHE AND COUGH. SINCE WEDNESDAY. REQUESTING COVID TEST. HEENT Symptoms (Recalled from RN notes): Yes Resp Symptoms (Recalled from RN notes): Yes Skin Symptoms (Recalled from RN notes): No MS Symptoms (Recalled from RN notes): No Functional Status (Recalled from RN notes): WNL - History of Present Illness Provider Complaint: Patient states that he started feeling bad about a week ago with sinus congestion and pressure and having drainage in the back of his throat
[2021-05-12 10:20] VITALS: BP 161/101; PULSE 75; RESP 20; TEMP 37; O2SAT 96
[2021-05-12 21:19] LABS: UTC Strep Screen (Rapid) Negative (Negative)
== END 2021-05-12 10:21 | disposition home or self-care (01) ==
PROVIDERS: Emergency Provider Nurse Practitioner; PCP Family Medicine
DX: J32.9 Chronic sinusitis, unspecified (principal); Z20.822 Contact with and (suspected) exposure to COVID-19; I10 Essential (primary) hypertension; I25.10 Atherosclerotic heart disease of native coronary artery without angina pectoris; E78.5 Hyperlipidemia, unspecified; F17.210 Nicotine dependence, cigarettes, uncomplicated; Z79.899 Other long term (current) drug therapy
CPT/HCPCS: 87880; 99203; G0463; U0003

== ENCOUNTER → 2022-09-15 13:24 | Outpatient (CLI) | payer BC, SELFPAY | LOC: LAB.DROPOF 09-16 05:58 | PROVIDERS: PCP Student in an Organized Health Care Education/Training Program; Visit Provider Student in an Organized Health Care Education/Training Program | DX: R05.9 Cough, unspecified (principal) | CPT/HCPCS: C9803; U0003; U0005 ==

== ENCOUNTER → 2023-06-12 09:55 | Outpatient (CLI) | payer BC, SELFPAY ==
[2023-06-11 18:14] LABS: Alanine Aminotransferase 37 U/L (12-78); Albumin Level 4.5 g/dl (3.5-5.0); Albumin/Globulin Ratio 1.2 (1.1-1.8); Alkaline Phosphatase 125 U/L (38-126); Anion Gap 18.3 mEq/L (5-15); Aspartate Amino Transferase 37 U/L (17-59); Bilirubin,Total 0.4 mg/dl (0.2-1.3); Blood Urea Nitrogen 17 mg/dl (9-20); Carbon Dioxide 22 mmol/L (22.0-30.0); Chloride 99 mmol/L (98-107); Estimated Glomerular Filt Rate 120 ml/min (>60); GFR (African American) 145 ML/MIN (>60); Globulin 3.7 g/dL (1.3-3.2); HDL Cholesterol 27 mg/dl (40-60); Potassium 5.3 mmoL/L (3.5-5.1); Sodium 134 mmol/L (136-145); Total Protein,Serum 8.2 g/dl (6.3-8.2)
[2023-06-11 18:19] LABS: Basophils # 0.1 K/mm3 (0-0.2); Eosinophils # 0.6 K/mm3 (0.0-0.4); Eosinophils % 4.9 % (0.1-12.0); Hematocrit 48.5 % (42.0-52.0); Hemoglobin 15.8 g/dL (14.1-18.0); Lymphocytes # 2.8 K/mm3 (0.7-4.5); Lymphocytes % 24.2 % (10-50); Mean Corpuscular HGB Conc 32.6 g/dL (31.8-35.4); Mean Corpuscular Hemoglobin 31.3 pg (27.0-31.2); Mean Platelet Volume 11.1 fl (7.4-10.4); Monocytes # 0.8 K/mm3 (0.1-1.0); Monocytes % 6.9 % (1.7-9.3); Neutrophils # 7.2 K/mm3 (1.8-7.8); Neutrophils % 62.9 % (37.0-80.0); Platelet Count 319 K/mm3 (142-424); Red Blood Count 5.05 M/mm3 (4.60-6.20); Red Cell Distribution Width 13.1 % (11.5-17.5); White Blood Count 11.4 K/mm3 (4.8-10.8)
[2023-06-11 18:31] LABS: 25-OH Vitamin D, Total 19.2 ng/mL (30-100)
[2023-06-11 18:44] LABS: Thyroid Stimulating Hormone 1.46 uIU/mL (0.465-4.68)
[2023-06-11 18:59] LABS: Hemoglobin A1C 10.7 % (4.0-6.0)
[2023-06-11 19:26] LABS: Chol/HDL Ratio 12.2 (1-3.5); Cholesterol 329 mg/dl (140-200); Triglycerides 871 mg/dl (30-150)
[2023-06-11 19:31] LABS: Glucose 456 mg/dl (74-100)
[2023-06-11 19:52] LABS: Creatinine,Urine Random 56 mg/dL (Not Estab.)
[2023-06-11 19:56] LABS: Microalbumin/Creatinine Ratio 107.3
== END ==
LOC: LAB.DROPOF 09:56
PROVIDERS: PCP Student in an Organized Health Care Education/Training Program; Visit Provider Student in an Organized Health Care Education/Training Program
DX: E11.9 Type 2 diabetes mellitus without complications (principal); N39.0 Urinary tract infection, site not specified; E55.9 Vitamin D deficiency, unspecified; Z68.35 Body mass index [BMI] 35.0-35.9, adult; Z79.84 Long term (current) use of oral hypoglycemic drugs
CPT/HCPCS: 80053; 80061; 82043; 82306; 82570; 83036; 84443; 85025; 87086

== ENCOUNTER → 2023-06-22 14:26 | Outpatient (CLI) | payer BC, SELFPAY ==
[2023-06-22 15:55] LABS: Chloride 101 mmol/L (98-107); Sodium 131 mmol/L (136-145)
[2023-06-22 15:56] LABS: Potassium 5.2 mmoL/L (3.5-5.1)
[2023-06-22 15:58] LABS: Alanine Aminotransferase 45 U/L (12-78); Albumin Level 4.5 g/dl (3.5-5.0); Albumin/Globulin Ratio 1.2 (1.1-1.8); Alkaline Phosphatase 122 U/L (38-126); Anion Gap 21.2 mEq/L (5-15); Aspartate Amino Transferase 52 U/L (17-59); Bilirubin,Total 0.7 mg/dl (0.2-1.3); Blood Urea Nitrogen 44 mg/dl (9-20); Carbon Dioxide 14 mmol/L (22.0-30.0); Estimated Glomerular Filt Rate 54 ml/min (>60); GFR (African American) 65 ML/MIN (>60); Globulin 3.8 g/dL (1.3-3.2); Total Protein,Serum 8.3 g/dl (6.3-8.2)
[2023-06-22 15:59] LABS: Calcium 9.3 mg/dl (8.4-10.2); Glucose 276 mg/dl (74-100)
[2023-06-22 16:09] LABS: Creatine Kinase MB 0.6 ng/ml (0.0-2.03)
== END ==
LOC: LAB 14:27
PROVIDERS: PCP Physician Assistant; Visit Provider Student in an Organized Health Care Education/Training Program
DX: E87.5 Hyperkalemia (principal); M54.9 Dorsalgia, unspecified
CPT/HCPCS: 36415; 80053; 82553

== ENCOUNTER 2023-06-23 10:02 | Emergency (ER) | payer BC, SELFPAY ==
[2023-06-23] VITALS (10 sets, daily range): BP systolic 118–155; BP diastolic 75–101; PULSE 87–105; RESP 18; TEMP 36.6–36.7; O2SAT 96–97; BMI 34.4
--- NOTE | 2023-06-23 10:40 | PC.NURSE ---
DR IBARRA AT BEDSIDE
--- NOTE | 2023-06-23 10:46 | HMH.EDGENADL ---
Discharge Plan Disposition Chief Complaint: Recheck/Abnormal Lab/Rx Prescriptions Prescriptions: No Action aspirin 81 mg tablet,delayed release (DR/EC) 81 mg PO DAILY Qty: 90 3RF colchicine (gout) 0.6 mg capsule 0.6 mg PO DAILY Qty: 90 3RF Ozempic 0.25 mg or 0.5 mg (2 mg/3 mL) pen injector 0.25 mg SQ WEEKLY Qty: 3 1RF Rx Instructions: 0.25 mg weekly X 4 weeks, then 0.5 mg weekly X 4 weeks, then call for 1 mg dose ondansetron HCl 4 mg tablet 4 mg PO Q8H PRN (Reason: nausea and vomiting) Qty: 14 0RF nystatin 100,000 unit/gram cream 1 applic topical BID Qty: 30 0RF indomethacin 50 mg capsule 50 mg PO TID PRN (Reason: gout) Qty: 90 1RF Rx Instructions: administer with food or milk carvedilol 25 mg tablet See Rx Instructions .ROUTE .COMPLEX Qty: 60 0RF Dose Instruction: TAKE ONE TABLET BY MOUTH TWICE DAILY Rx Instructions: TAKE ONE TABLET BY MOUTH TWICE DAILY Jardiance 10 mg tablet 10 mg PO DAILY Qty: 30 2RF cholecalciferol (vitamin D3) 50 mcg (2,000 unit) capsule 50 mcg PO DAILY Qty: 30 2RF atorvastatin 40 mg tablet 40 mg PO DAILY Qty: 30 2RF lisinopril-hydrochlorothiazide 10-12.5 mg tablet 1 tab PO DAILY Qty: 30 2RF (DME) blood-glucose meter [Blood Glucose Monitoring] Kit See Rx Instructions .Route Qty: 1 0RF Rx Instructions: As directed, check BG TID (DME) Blood Glucose Test Strip See Rx Instructions .Route Qty: 50 4RF Rx Instructions: As directed, check BG TID (DME) lancets 30 gauge misc See Rx Instructions .Route Qty: 100 2RF Rx Instructions: As directed, check BG TID Referrals Follow up/Referrals: Ava Villalobos PA [Primary Care Provider] - See instructions Activity Restrictions/Add. Instructions Additional Instructions/Restrictions: Your labs dramatically improved over the last few days and especially in the emergency department today after a few liters of IV fluids your kidney function is back to normal. No indication for admission at this point. Please follow-up with your primary care doctor and I would recommend that you follow-up with an high lift driver as well for your poorly controlled diabetes which are to the point of having organ dysfunction today. Return with any worsening symptoms. Clinical Impressions Clinical Impression: Acute kidney injury, Metabolic acidosis, Acute dehydration, Poorly controlled diabetes mellitus Discharge ED Provider: Enriqueta Wong General Adult HPI General Chief complaint: Recheck/Abnormal Lab/Rx Stated complaint: recommended ER bc of kidney failure Time Seen by Provider: 06/23/23 10:28 Mode of Arrival: Ambulatory Source of Information: Patient Limitations: No Limitations Description of Symptoms (Recalled from ER Triage Doc. by RN): PT REPORTS ABNORMAL LABS. PT REPORTS VOMITING AND DIZZINESS FOR ABOUT 1 WEEK. REPORTS RECENT MED ADJUSTS. History of Present Illness HPI narrative: Patient is a known diabetic who has had significant osmotic diuresis recently with high urine output states has been feeling sick since the end of last month went to his primary care doctor was started on multiple medications including Ozempic which he took and had some abdominal discomfort. States he just been feeling down and overall malaise and that he stopped several of the medications and was starting to feel better but had some blood work drawn yesterday and they called him and told him he had acute renal failure and to come emergently to the hospital. States this made him significantly anxious and tearful as he did not know what this meant. He still is having large amounts of urine output at this point. His creatinine was 1.4 up from 0.7 with a significant depression in his bicarb. He denies any other symptoms including chest pain fevers chills nausea vomiting diarrhea etc. Related Data Previous Rx's Medication Instructions Recorded aspirin 81 mg tablet,de
--- NOTE | 2023-06-23 10:50 | PC.NURSE ---
Checked on pt gave him ice chips nothing else needed at this time, at bs
[2023-06-23 10:53] LABS: VBG Base Excess -5.4 mmol/L (-2.4-2.3); VBG HCO3 18.6 mmol/L (23-30); VBG Oxygen Saturation 99.5 % (50-70); VBG PCO2 27.2 mmol/L (35-51); VBG PH 7.45 mmol/L (7.31-7.41); VBG Total CO2 19.4 mmol/L (23-27)
[2023-06-23 10:56] LABS: Microscopic, Urine URINE MICROSCOPIC (MICROSCOPIC)
[2023-06-23 10:57] LABS: Alanine Aminotransferase 41 U/L (12-78); Albumin Level 4.8 g/dl (3.5-5.0); Albumin/Globulin Ratio 1.1 (1.1-1.8); Alkaline Phosphatase 124 U/L (38-126); Anion Gap 20.8 mEq/L (5-15); Aspartate Amino Transferase 41 U/L (17-59); Bilirubin,Total 0.7 mg/dl (0.2-1.3); Blood Urea Nitrogen 33 mg/dl (9-20); Calcium 9.2 mg/dl (8.4-10.2); Carbon Dioxide 18 mmol/L (22.0-30.0); Chloride 99 mmol/L (98-107); Creatinine Clearance Estimated 115 mL/min (50-200); Estimated Glomerular Filt Rate 71 ml/min (>60); GFR (African American) 86 ML/MIN (>60); Globulin 4.4 g/dL (1.3-3.2); Glucose 280 mg/dl (74-100); Magnesium 2.5 mg/dl (1.6-2.3); Phosphorous 3.8 mg/dl (2.5-4.5); Potassium 4.8 mmoL/L (3.5-5.1); Sodium 133 mmol/L (136-145); Total Protein,Serum 9.2 g/dl (6.3-8.2)
[2023-06-23 10:58] LABS: Basophils # 0.1 K/mm3 (0-0.2); Basophils % 0.7 % (0.1-2.0); Eosinophils # 0.4 K/mm3 (0.0-0.4); Eosinophils % 3.2 % (0.1-12.0); Hematocrit 46.6 % (42.0-52.0); Hemoglobin 16.8 g/dL (14.1-18.0); Lymphocytes # 4.7 K/mm3 (0.7-4.5); Lymphocytes % 33.9 % (10-50); Mean Corpuscular Hemoglobin 32.9 pg (27.0-31.2); Mean Corpuscular Volume 91.4 fl (80-94); Mean Platelet Volume 10.7 fl (7.4-10.4); Monocytes # 1.1 K/mm3 (0.1-1.0); Monocytes % 8.2 % (1.7-9.3); Neutrophils # 7.4 K/mm3 (1.8-7.8); Platelet Count 240 K/mm3 (142-424); Red Cell Distribution Width 13.1 % (11.5-17.5); White Blood Count 13.7 K/mm3 (4.8-10.8)
--- NOTE | 2023-06-23 10:58 | ECG_ITS ---
APPROVED REPORT Exam: Resting ECG HR:104 bpm ECG Measurements Heart Rate 104 AXES OH 173 P 60 QRSd 106 QRS 74 QT 327 T 59 QTc 387 Conclusion SINUS TACHYCARDIA ABNORMAL RHYTHM ECG UNCONFIRMED REPORT Electronically signed by : Sahil Delaney MD 06/26/2023 11:07:44
[2023-06-23 10:59] LABS: Appearance,Urine CLEAR (Clear); Bilirubin,Urine Negative (Negative); Blood, Urine TRACE-I (Negative); Color,Urine YELLOW (Yellow); Glucose,Urine (UA) 3+ (Negative); Ketones,Urine Negative (Negative); Leukocyte Esterase,Urine Negative (Negative); Nitrate,Urine Negative (Negative); PH,Urine 5.5 (5.0-8.5); Protein,Urine Negative (Negative); Urobilinogen,Urine 0.2 EU/dl (0.2)
--- NOTE | 2023-06-23 11:10 | PC.NURSE ---
DR IBARRA AT BEDSIDE TO UPDATE PT AND FAMILY
[2023-06-23 11:13] LABS: Bacteria,Urine 1+ /lpf; WBC,Urine Occasional #/hpf (0-3)
--- NOTE | 2023-06-23 12:00 | PC.NURSE ---
DR IBARRA AT BEDSIDE TO REEVALUATE PT
--- NOTE | 2023-06-23 12:12 | PC.NURSE ---
PT ASSISTED TO BR
--- NOTE | 2023-06-23 13:03 | PC.NURSE ---
PT PROVIDED PILLOW.CALL LIGHT WITHIN REACH. NO NEEDS AT THIS TIME
--- NOTE | 2023-06-23 13:33 | PC.NURSE ---
lab here for blood draw
[2023-06-23 14:03] LABS: Anion Gap 16.9 mEq/L (5-15); Blood Urea Nitrogen 30 mg/dl (9-20); Calcium 9.1 mg/dl (8.4-10.2); Carbon Dioxide 19 mmol/L (22.0-30.0); Chloride 101 mmol/L (98-107); Creatinine Clearance Estimated 140 mL/min (50-200); Estimated Glomerular Filt Rate 90 ml/min (>60); GFR (African American) 109 ML/MIN (>60); Glucose 211 mg/dl (74-100); Potassium 4.9 mmoL/L (3.5-5.1); Sodium 132 mmol/L (136-145)
== END 2023-06-23 14:54 | disposition home or self-care (01) ==
PROVIDERS: Emergency Provider Student in an Organized Health Care Education/Training Program; PCP Physician Assistant
DX: N17.9 Acute kidney failure, unspecified (principal)
CPT/HCPCS: 36415; 80048; 80053; 81001; 82803; 83735; 84100; 85025; 93005; 96360; 99285

== ENCOUNTER 2023-11-26 18:31 | Outpatient (CLI) | payer BC, SELFPAY ==
[2023-11-26 18:16] LABS: Basophils # 0.2 K/mm3 (0-0.2); Basophils % 1.1 % (0.1-2.0); Eosinophils # 0.3 K/mm3 (0.0-0.4); Eosinophils % 2.5 % (0.1-12.0); Hematocrit 43.5 % (42.0-52.0); Hemoglobin 14.1 g/dL (14.1-18.0); Lymphocytes # 3.5 K/mm3 (0.7-4.5); Lymphocytes % 25.1 % (10-50); Mean Corpuscular HGB Conc 32.5 g/dL (31.8-35.4); Mean Corpuscular Hemoglobin 31.4 pg (27.0-31.2); Mean Corpuscular Volume 96.7 fl (80-94); Mean Platelet Volume 9.3 fl (7.4-10.4); Monocytes # 1.2 K/mm3 (0.1-1.0); Monocytes % 8.5 % (1.7-9.3); Neutrophils # 8.7 K/mm3 (1.8-7.8); Neutrophils % 62.8 % (37.0-80.0); Platelet Count 340 K/mm3 (142-424); Red Cell Distribution Width 13.6 % (11.5-17.5); White Blood Count 13.8 K/mm3 (4.8-10.8)
[2023-11-26 19:20] LABS: Hemoglobin A1C 10.6 % (4.0-6.0)
[2023-11-26 21:19] LABS: Alanine Aminotransferase 30 U/L (12-78); Albumin Level 4.4 g/dl (3.5-5.0); Albumin/Globulin Ratio 1.5 (1.1-1.8); Alkaline Phosphatase 166 U/L (38-126); Anion Gap 16.9 mEq/L (5-15); Aspartate Amino Transferase 38 U/L (17-59); Bilirubin,Total 0.6 mg/dl (0.2-1.3); Blood Urea Nitrogen 34 mg/dl (9-20); Calcium 9.5 mg/dl (8.4-10.2); Carbon Dioxide 19 mmol/L (22.0-30.0); Chloride 99 mmol/L (98-107); Chol/HDL Ratio 6.3 (1-3.5); Cholesterol 170 mg/dl (140-200); Estimated Glomerular Filt Rate 43 ml/min (>60); GFR (African American) 52 ML/MIN (>60); Glucose 191 mg/dl (74-100); HDL Cholesterol 27 mg/dl (40-60); Potassium 4.9 mmoL/L (3.5-5.1); Sodium 130 mmol/L (136-145); Total Protein,Serum 7.4 g/dl (6.3-8.2); Triglycerides 378 mg/dl (30-150); VLDL Cholesterol 76 mg/dL (0-40)
[2023-11-26 21:29] LABS: Direct LDL Cholesterol 79.87 mg/dL (100-129)
== END 2023-11-26 23:59 ==
LOC: LAB.DROPOF 18:32
PROVIDERS: PCP Student in an Organized Health Care Education/Training Program; Visit Provider Student in an Organized Health Care Education/Training Program
DX: E11.69 Type 2 diabetes mellitus with other specified complication (principal); E55.9 Vitamin D deficiency, unspecified; M10.9 Gout, unspecified; Z68.34 Body mass index [BMI] 34.0-34.9, adult
CPT/HCPCS: 80053; 80061; 82306; 83036; 85025

== ENCOUNTER 2024-05-24 12:25 | Outpatient (CLI) | payer BC, SELFPAY ==
[2024-05-24 13:18] LABS: Basophils # 0.2 K/mm3 (0-0.2); Basophils % 1.9 % (0.1-2.0); Eosinophils # 0.6 K/mm3 (0.0-0.4); Eosinophils % 6.6 % (0.1-12.0); Hematocrit 45.3 % (42.0-52.0); Hemoglobin 14.4 g/dL (14.1-18.0); Lymphocytes # 2.3 K/mm3 (0.7-4.5); Mean Corpuscular HGB Conc 31.9 g/dL (31.8-35.4); Mean Corpuscular Hemoglobin 31.8 pg (27.0-31.2); Mean Corpuscular Volume 99.6 fl (80-94); Mean Platelet Volume 9.3 fl (7.4-10.4); Monocytes # 0.6 K/mm3 (0.1-1.0); Monocytes % 6.2 % (1.7-9.3); Neutrophils # 5.9 K/mm3 (1.8-7.8); Neutrophils % 61.3 % (37.0-80.0); Platelet Count 395 K/mm3 (142-424); Red Blood Count 4.55 M/mm3 (4.60-6.20); Red Cell Distribution Width 15.4 % (11.5-17.5); White Blood Count 9.6 K/mm3 (4.8-10.8)
[2024-05-24 13:47] LABS: Alanine Aminotransferase 24 U/L (12-78); Albumin Level 4.2 g/dl (3.5-5.0); Albumin/Globulin Ratio 1.2 (1.1-1.8); Alkaline Phosphatase 113 U/L (38-126); Anion Gap 10.8 mEq/L (5-15); Aspartate Amino Transferase 34 U/L (17-59); Bilirubin,Total 0.6 mg/dl (0.2-1.3); Blood Urea Nitrogen 17 mg/dl (9-20); Calcium 9.9 mg/dl (8.4-10.2); Carbon Dioxide 28 mmol/L (22.0-30.0); Chloride 103 mmol/L (98-107); Chol/HDL Ratio 8.1 (1-3.5); Cholesterol 275 mg/dl (140-200); Estimated Glomerular Filt Rate 89 ml/min (>60); GFR (African American) 108 ML/MIN (>60); Globulin 3.5 g/dL (1.3-3.2); Glucose 163 mg/dl (74-100); HDL Cholesterol 34 mg/dl (40-60); Potassium 5.8 mmoL/L (3.5-5.1); Sodium 136 mmol/L (136-145); Total Protein,Serum 7.7 g/dl (6.3-8.2); Uric Acid 10.6 mg/dl (3.5-8.5)
[2024-05-24 13:58] LABS: Direct LDL Cholesterol 145.81 mg/dL (100-129)
[2024-05-24 13:59] LABS: Triglycerides 479 mg/dl (30-150)
[2024-05-24 14:00] LABS: Hemoglobin A1C 6.2 % (4.0-6.0)
[2024-05-24 14:13] LABS: 25-OH Vitamin D, Total 22.5 ng/mL (30-100)
== END 2024-05-24 23:59 | disposition home or self-care (01) ==
LOC: LAB 12:26
PROVIDERS: PCP Student in an Organized Health Care Education/Training Program; Visit Provider Student in an Organized Health Care Education/Training Program
DX: E78.2 Mixed hyperlipidemia (principal); Z13.29 Encounter for screening for other suspected endocrine disorder; E55.9 Vitamin D deficiency, unspecified; E11.69 Type 2 diabetes mellitus with other specified complication; M10.9 Gout, unspecified; Z79.85 Long-term (current) use of injectable non-insulin antidiabetic drugs
CPT/HCPCS: 36415; 80050; 80053; 80061; 82306; 83036; 84443; 84550; 85025

== ENCOUNTER 2024-06-01 11:15 | Outpatient (CLI) | payer BC, SELFPAY ==
--- NOTE | 2024-06-01 11:21 | XR_ITS ---
FINAL REPORT TECHNIQUE: 2 views left clavicle CLINICAL HISTORY: Fall, shoulder pain COMPARISON: None FINDINGS: LEFT CLAVICLE: Two images of the left clavicle were obtained. There is no evidence of fracture or dislocation. There is mild hypertrophic change of the acromioclavicular joint. There is no soft tissue abnormality identified. IMPRESSION: No acute bony abnormality. Mild hypertrophic change of the acromioclavicular joint. Reviewed, Interpreted and Dictated by Preet Lopes MD Transcribed by Sandee Hinton Authenticated and [facility]
--- NOTE | 2024-06-01 11:21 | XR_ITS ---
FINAL REPORT CLINICAL HISTORY: fall, radiating pain left side of neck, shoulder COMPARISON: None FINDINGS: LEFT SHOULDER 3 views of the left shoulder were obtained. There is no acute fracture or dislocation. Visualized joint spaces are normally aligned. There is mild hypertrophic change of the left acromioclavicular joint. Soft tissues are unremarkable. IMPRESSION: No acute bony abnormality. Mild hypertrophic change of the left acromioclavicular joint. Reviewed, Interpreted and Dictated by Preet Lopes MD Transcribed by Sandee Hinton Authenticated and [facility]
--- NOTE | 2024-06-01 11:21 | XR_ITS ---
FINAL REPORT TECHNIQUE: 3 views CLINICAL HISTORY: fall, radiating pain left side of neck, shoulder COMPARISON: None FINDINGS: CERVICAL SPINE: AP, lateral and odontoid views of the cervical spine were obtained. There is no prior exam for comparison. There is no acute fracture or malalignment. There are small anterior osteophytes present at the C5-6 and C6-7 levels, more prominent at the C6-7 level, with mild disc space narrowing. Vertebral body height is preserved. The precervical soft tissues are normal. IMPRESSION: Mild degenerative change as described without acute bony abnormality Reviewed, Interpreted and Dictated by Preet Lopes MD Transcribed by Sandee Hinton Authenticated and [facility]
== END 2024-06-01 23:59 | disposition home or self-care (01) ==
LOC: RAD 11:17
PROVIDERS: PCP Student in an Organized Health Care Education/Training Program; Visit Provider Student in an Organized Health Care Education/Training Program
DX: M25.512 Pain in left shoulder (principal)
CPT/HCPCS: 72040; 73000; 73030

== ENCOUNTER 2024-10-05 15:42 | Outpatient (CLI) | payer OTHER, BC, SELFPAY ==
--- NOTE | 2024-10-05 15:44 | XR_ITS ---
PROCEDURE INFORMATION: Exam: XR Left Elbow Exam date and time: 10/05/2024 3:54 PM Age: 48 years old Clinical indication: Injury or trauma; Fall; Blunt trauma (contusions or hematomas); Elbow; Left; Additional info: Fall with injury TECHNIQUE: Imaging protocol: Radiologic exam of the left elbow. Views: 1 or 2 views. COMPARISON: CR XR SHOULDER LT MIN 2V 10/05/2024 3:54 PM FINDINGS: Bones/joints: Normal. Soft tissues: Normal. IMPRESSION: No acute findings.
--- NOTE | 2024-10-05 15:44 | XR_ITS ---
PROCEDURE INFORMATION: Exam: XR Left Shoulder Exam date and time: 10/05/2024 3:54 PM Age: 48 years old Clinical indication: Injury or trauma; Fall; Blunt trauma (contusions or hematomas); Shoulder; Left; Additional info: Fall with injury TECHNIQUE: Imaging protocol: Radiologic exam of the left shoulder. Views: 2 or more views. COMPARISON: CR XR CERVICAL SPINE 2V 10/05/2024 3:54 PM FINDINGS: Bones/joints: The glenohumeral joint shows mild joint space narrowing. There are small osteophytes at the joint margins, particularly at the inferior aspect of the humeral head and the glenoid. Subchondral sclerosis is noted at the humeral head and glenoid. The acromioclavicular (AC) joint also demonstrates mild joint space narrowing and small osteophytes. No acute fracture or dislocation is identified. The visualized portions of the ribs, scapula, and clavicle are intact and demonstrate normal bone density. Soft tissues: The soft tissues appear unremarkable. No evidence of significant soft tissue swelling or calcification. IMPRESSION: 1. Mild degenerative changes of the glenohumeral and acromioclavicular joints consistent with early osteoarthritis. 2. No evidence of acute osseous injury or significant soft tissue abnormality.
--- NOTE | 2024-10-05 15:44 | XR_ITS ---
PROCEDURE INFORMATION: Exam: XR Cervical Spine Exam date and time: 10/05/2024 3:54 PM Age: 48 years old Clinical indication: Injury or trauma; Fall; Blunt trauma; Additional info: Fall with injury TECHNIQUE: Imaging protocol: Radiologic exam of the cervical spine. Views: 2 or 3 views. COMPARISON: CR XR SHOULDER LT MIN 2V 10/05/2024 3:54 PM FINDINGS: Bones/joints: The alignment of the cervical spine shows mild straightening with no evidence of subluxation or malalignment. The vertebral body heights are preserved, and there is mild osteophyte formation indicative of degenerative changes. The disc spaces exhibit mild narrowing. Facet joints also display mild degenerative changes, but without significant hypertrophy. Soft tissues: The prevertebral soft tissues are within normal limits, and there are no acute osseous abnormalities, fractures, or dislocations. Other findings: Prevertebral and paravertebral soft tissues appear unremarkable. IMPRESSION: 1. Mild degenerative changes of the cervical spine are observed, characterized by osteophyte formation and disc space narrowing. 2. There is no evidence of acute osseous pathology.
== END 2024-10-05 23:59 | disposition home or self-care (01) ==
LOC: RAD 15:42
PROVIDERS: PCP Internal Medicine; Visit Provider Internal Medicine
DX: M54.2 Cervicalgia (principal); M25.512 Pain in left shoulder; M25.522 Pain in left elbow
CPT/HCPCS: 72040; 73030; 73070

== ENCOUNTER 2024-10-18 09:35 | Outpatient (CLI) | payer BC, SELFPAY ==
[2024-10-18 17:51] LABS: Microscopic, Urine URINE MICROSCOPIC (MICROSCOPIC)
[2024-10-18 18:49] LABS: Basophils # 0.1 K/mm3 (0-0.2); Basophils % 1.4 % (0.1-2.0); Eosinophils # 0.8 K/mm3 (0.0-0.4); Eosinophils % 7.7 % (0.1-12.0); Hemoglobin 15.1 g/dL (14.1-18.0); Lymphocytes # 2.9 K/mm3 (0.7-4.5); Lymphocytes % 29.1 % (10-50); Mean Corpuscular HGB Conc 33.6 g/dL (31.8-35.4); Mean Corpuscular Hemoglobin 30.9 pg (27.0-31.2); Mean Corpuscular Volume 92.2 fl (80-94); Mean Platelet Volume 10.7 fl (7.4-10.4); Monocytes # 0.8 K/mm3 (0.1-1.0); Monocytes % 8.6 % (1.7-9.3); Neutrophils # 5.2 K/mm3 (1.8-7.8); Neutrophils % 52.8 % (37.0-80.0); Platelet Count 355 K/mm3 (142-424); Red Blood Count 4.88 M/mm3 (4.60-6.20); Red Cell Distribution Width 13.2 % (11.5-17.5); White Blood Count 9.8 K/mm3 (4.8-10.8)
[2024-10-18 18:55] LABS: Appearance,Urine CLEAR (Clear); Bilirubin,Urine Negative (Negative); Blood, Urine Negative (Negative); Color,Urine YELLOW (Yellow); Creatinine,Urine Random 72 mg/dL (Not Estab.); Glucose,Urine (UA) Negative (Negative); Ketones,Urine Negative (Negative); Leukocyte Esterase,Urine Negative (Negative); Nitrate,Urine Negative (Negative); PH,Urine 6.5 (5.0-8.5); Protein,Urine Negative (Negative); Specific Gravity, Urine 1.015 (1.005-1.030); Urobilinogen,Urine 0.2 EU/dl (0.2)
[2024-10-18 19:20] LABS: Albumin Level 5.1 g/dl (3.5-5.0); Chloride 99 mmol/L (98-107); Potassium 4.7 mmoL/L (3.5-5.1); Sodium 136 mmol/L (136-145)
[2024-10-18 19:23] LABS: Alanine Aminotransferase 27 U/L (12-78); Alkaline Phosphatase 134 U/L (38-126); Anion Gap 16.7 mEq/L (5-15); Aspartate Amino Transferase 34 U/L (17-59); Bilirubin,Total 0.3 mg/dl (0.2-1.3); Blood Urea Nitrogen 25 mg/dl (9-20); Calcium 9.9 mg/dl (8.4-10.2); Carbon Dioxide 25 mmol/L (22.0-30.0); Cholesterol 262 mg/dl (140-200); Estimated Glomerular Filt Rate 102 ml/min (>60); GFR (African American) 124 ML/MIN (>60); Globulin 2.6 g/dL (1.3-3.2); Glucose 125 mg/dl (74-100); Iron 72 ug/dL (49-181); Total Protein,Serum 7.7 g/dl (6.3-8.2); Triglycerides 367 mg/dl (30-150); VLDL Cholesterol 73 mg/dL (0-40)
[2024-10-18 19:24] LABS: Chol/HDL Ratio 8.5 (1-3.5); HDL Cholesterol 31 mg/dl (40-60)
[2024-10-18 19:26] LABS: Uric Acid 10.5 mg/dl (3.5-8.5)
[2024-10-18 19:29] LABS: Hemoglobin A1C 6.1 % (4.0-6.0)
[2024-10-18 19:30] LABS: C-Reactive Protein 19.6 mg/L (0-4)
[2024-10-18 19:34] LABS: Direct LDL Cholesterol 148.68 mg/dL (100-129)
[2024-10-18 19:35] LABS: Erythrocyte Sedimentation Rate 16 mm/hr (0-15)
[2024-10-18 19:39] LABS: Total Iron Binding Capacity 406 ug/dL (261-462)
[2024-10-18 19:52] LABS: Prostate Specific Ag Screen 0.6 ng/ml (0.0-4.0)
[2024-10-18 19:55] LABS: 25-OH Vitamin D, Total 35.4 ng/mL (30-100)
[2024-10-18 20:06] LABS: Ferritin 73.7 ng/ml (17.9-464)
[2024-10-18 20:07] LABS: HIV Combo NEGATIVE (Negative)
[2024-10-18 20:12] LABS: Vitamin B12 288 pg/mL (239-931)
[2024-10-18 20:13] LABS: Hepatitis C Ab Qual. W/ RFX NEGATIVE (Negative)
[2024-10-18 21:01] LABS: Microalbumin/Creatinine Ratio 14.8
[2024-10-18 21:08] LABS: Folate 4.59 ng/mL
[2024-10-18 22:48] LABS: Bacteria,Urine Trace /lpf; WBC,Urine Occasional #/hpf (0-3)
== END 2024-10-18 23:59 | disposition home or self-care (01) ==
LOC: LAB.DROPOF 10-20 09:36
PROVIDERS: PCP Nurse Practitioner Family; Visit Provider Nurse Practitioner Family
DX: M10.9 Gout, unspecified (principal); E55.9 Vitamin D deficiency, unspecified; E78.2 Mixed hyperlipidemia; E11.69 Type 2 diabetes mellitus with other specified complication; I10 Essential (primary) hypertension; D64.9 Anemia, unspecified; Z11.59 Encounter for screening for other viral diseases; E11.9 Type 2 diabetes mellitus without complications; Z11.4 Encounter for screening for human immunodeficiency virus [HIV]; E87.5 Hyperkalemia; E11.65 Type 2 diabetes mellitus with hyperglycemia; E53.8 Deficiency of other specified B group vitamins; Z12.5 Encounter for screening for malignant neoplasm of prostate
CPT/HCPCS: 80053; 80061; 81001; 82043; 82306; 82570; 82607; 82728; 82746; 83036; 83540; 83550; 84156; 84550; 85025; 85651; 86140; 86803; 87086; 87088; 87186; 87389; G0103

== ENCOUNTER 2025-03-06 15:35 | Outpatient (CLI) | payer BC, SELFPAY ==
[2025-03-06 16:28] LABS: Basophils # 0.2 K/mm3 (0-0.2); Basophils % 1.5 % (0.1-2.0); Eosinophils # 0.5 Kmm3 (0.0-0.4); Eosinophils % 5.3 % (0.1-12.0); Hematocrit 41.3 % (42.0-52.0); Hemoglobin 14.4 g/dL (14.1-18.0); Immature Granulocytes # 0.06 10^3uL; Immature Granulocytes % 0.6 %; Lymphocytes # 3.4 K/mm3 (0.7-4.5); Mean Corpuscular HGB Conc 34.9 g/dL (31.8-35.4); Mean Corpuscular Hemoglobin 32.6 pg (27.0-31.2); Mean Corpuscular Volume 93.4 fl (80-94); Mean Platelet Volume 10.5 fl (7.4-10.4); Monocytes # 1.1 K/mm3 (0.1-1.0); Monocytes % 10.7 % (1.7-9.3); Neutrophils # 4.8 K/mm3 (1.8-7.8); Neutrophils % 47.9 % (37.0-80.0); Nucleated Red Blood Cells # 0 10^3/uL; Nucleated Red Blood Cells % 0 %; Platelet Count 418 K/mm3 (142-424); Red Blood Count 4.42 M/mm3 (4.60-6.20); Red Cell Distribution Width-SD 44.5 fL
[2025-03-06 16:53] LABS: Albumin Level 4.6 g/dl (3.5-5.0); Chloride 100 mmol/L (98-107)
[2025-03-06 16:54] LABS: Potassium 4.6 mmoL/L (3.5-5.1); Sodium 137 mmol/L (136-145)
[2025-03-06 16:56] LABS: Alanine Aminotransferase 35 U/L (12-78); Anion Gap 16.6 mEq/L (5-15); Aspartate Amino Transferase 39 U/L (17-59); Bilirubin,Unconjugated 0.2 mg/dL (0.0-1.1); Blood Urea Nitrogen 24 mg/dl (9-20); Carbon Dioxide 25 mmol/L (22.0-30.0); Estimated Glomerular Filt Rate 64 ml/min (>60); GFR (African American) 77 ML/MIN (>60); Total Protein,Serum 7.8 g/dl (6.3-8.2)
[2025-03-06 16:57] LABS: Alkaline Phosphatase 129 U/L (38-126); Bilirubin,Direct 0.1 mg/dl (0.0-0.4); Bilirubin,Indirect 0.3 mg/dL (0.0-0.9); Bilirubin,Total 0.4 mg/dl (0.2-1.3); Calcium 9.9 mg/dl (8.4-10.2); Chol/HDL Ratio 4.6 (1-3.5); Cholesterol 179 mg/dl (140-200); Glucose 125 mg/dl (74-100); HDL Cholesterol 39 mg/dl (40-60); Magnesium 1.6 mg/dl (1.6-2.3); Triglycerides 393 mg/dl (30-150); VLDL Cholesterol 79 mg/dL (0-40)
[2025-03-06 17:08] LABS: Direct LDL Cholesterol 81.82 mg/dL (100-129)
[2025-03-06 17:14] LABS: Free T4 (Free Thyroxine) 1.57 ng/dl (0.78-2.19)
[2025-03-06 17:28] LABS: Thyroid Stimulating Hormone 1.65 uIU/mL (0.465-4.68)
[2025-03-06 18:20] LABS: Hemoglobin A1C 6.9 % (4.0-6.0)
== END 2025-03-06 23:59 | disposition home or self-care (01) ==
LOC: LAB 15:35
PROVIDERS: PCP Nurse Practitioner Family; Visit Provider Nurse Practitioner
DX: I25.10 Atherosclerotic heart disease of native coronary artery without angina pectoris (principal); I11.9 Hypertensive heart disease without heart failure; Z87.74 Personal history of (corrected) congenital malformations of heart and circulatory system
CPT/HCPCS: 36415; 80048; 80061; 80076; 83036; 83735; 84439; 84443; 85025

== ENCOUNTER 2025-03-23 15:10 | Outpatient (CLI) | payer BC, SELFPAY ==
--- NOTE | 2025-03-23 15:15 | CA_ITS ---
APPROVED REPORT EXAM: Comprehensive 2D, Doppler, and color-flow Echocardiogram Ceramic Maker Demonstrator: Taty Forbes, RCS, RVS Ht: 5 ft 5 in Wt: 207lbs BSA: 2.01 BP: 156/97 mmHg Indications: CP-NJ? DD, Hx-VSD repair 2D Dimensions Aortic Root 2.31 cm LA Volume 62.70 mL Left Atrium 4.05 cm LA Volume Index 31.055210 mL/m2 (M/F) 16-34 RVID Base (AP4) 3.16 cm (M/F) 2.5-4.1 EF AP4 47.10 % LVOT 1.75 cm (M/F) 1.5-2.5 GL Strain -18.1 % M-Mode Dimensions RVDd 2.21 cm (0.9-2.6) LVDd 4.70 cm (3.5-5.7) Ao Diam 2.78 cm (2.0-3.7) LVDs 3.34 cm (3.5-5.7) IVSd 1.09 cm (0.6-1.1) PWd 0.96 cm (0.6-1.1) EF (Teich) 55.70% EPSs 0.43 cm FS 28.90% EDV (Teich) 102.40 mL TAPSE 1.45 (<1.7) ESV (Teich) 45.40 mL LV Diastology E Decel Time 169 (160-240 msec) E/A Ratio 1.19 MED E' 7.3 (>= 7 cm/sec) MED A' 9.10 cm/s E'/MED E' Ratio 13.40 (<= 14) LAT E' 10.7 (>= 10 cm/sec) LAT A' 6.80 cm/s E/LAT E' Ratio 9.14 (<= 14) Aortic Valve LVOT Max 87.0 (70-110 cm/s) LILIANE Index 0.76 cm2/m2 LVOT VTI 17.33 cm AoV Peak Juanjo. 144.0 (50-130 cm/s) AO Mean GR. 4.20 (<5 mmHg) AO VTI 27.2 (18-25 cm) LILIANE (VTI) 1.53 (2.5-4.5 cm2) Mitral Valve MV E Max Juanjo. 98.0 (40-130 cm/s) MV A Velocity 82.0 (40-130 cm/s) E/A Ratio 1.19 MV Decel. Time 169 (160-240 ms) MV Mean Gr. 2.40 (<2mmHg) Tricuspid Valve TR P. Velocity 281.00 cm/s RAP Estimate 10.00 mmHg RVSP 41.60 mmHg Left Ventricle The left ventricle is normal size. The left ventricular systolic function is normal. The left ventricular ejection fraction is within the normal range. There is normal left ventricular wall thickness. There is normal LV segmental wall motion. The left ventricular diastolic function is normal. Reported history of prior VSD repair. LVEF is 55%. Right Ventricle The right ventricle is mildly dilated. The right ventricular systolic function is normal. Atria The left atrium size is normal. The right atrium size is normal. Color Doppler is likely demonstrates presence of interatrial shunt (visualized in apical 5 chamber view). Aortic Valve The aortic valve is mildly thickened. There is no aortic valvular stenosis. No aortic regurgitation is present. Mitral Valve The mitral valve is normal in structure. No evidence of mitral valve stenosis. Mild mitral regurgitation. Tricuspid Valve Tricuspid valve is grossly normal in structure and function. Mild tricuspid regurgitation. RVSP is 25-30 mmHg. Pulmonic Valve The pulmonary valve is normal in structure. Trace pulmonic regurgitation. Great Vessels The aortic root is normal in size. IVC is normal in size and collapses >50% with inspiration. Pericardium There is no pericardial effusion. Other Information Study Quality: Fair Conclusion Normal LV systolic function. Mild RV dilation with normal RV function. Mild MR, mild TR. Color Doppler is likely demonstrates presence of interatrial shunt (visualized in apical 5 chamber view). In the setting of mild RV dilation with possible interatrial shunt, further evaluation with limited TTE with agitated saline administration is suggested. If confirmed, RAJESH and cardiac MRI (cardiomyopathy/shunt protocol) are recommended. Electronically signed by : Ruchi Rodas MD 03/31/2025 20:02:27
== END 2025-03-23 23:59 | disposition home or self-care (01) ==
LOC: RT 15:10
PROVIDERS: PCP Nurse Practitioner Family; Visit Provider Nurse Practitioner
DX: I08.1 Rheumatic disorders of both mitral and tricuspid valves (principal); I11.9 Hypertensive heart disease without heart failure; I25.10 Atherosclerotic heart disease of native coronary artery without angina pectoris; Z87.74 Personal history of (corrected) congenital malformations of heart and circulatory system
CPT/HCPCS: 93306

== ENCOUNTER 2025-05-02 15:12 | Outpatient (CLI) | payer BC, SELFPAY ==
--- NOTE | 2025-05-02 15:15 | CA_ITS ---
APPROVED REPORT EXAM: Limited 2D Echocardiogram Multifocal Button Inspector: Diana Helotn RVT Ht: 5 ft 7 in Wt: 209lbs BSA: 2.06 BP: 132/87 mmHg Indications: RV DILATION AND POSSIBLE SHUNT SEEN ON TTE,PRIOR VSD REPAIR Echo Enhancing Agent Indication: Rule out Shunt Agent(s) / Amount(s) Used: Agitated Saline 10 cc Other Information Study Quality: Fair Conclusion This is a limited TTE to evaluate for presence of interatrial shunt. Limited windows were obtained. Agitated saline administration at rest, as well as with Valsalva and sniff maneuvers, demonstrate no evidence of interatrial shunt. Electronically signed by : Ruchi Rodas MD 05/03/2025 13:31:35
== END 2025-05-02 23:59 | disposition home or self-care (01) ==
LOC: RT 15:12
PROVIDERS: PCP Nurse Practitioner Family; Visit Provider Physician Assistant
DX: I25.10 Atherosclerotic heart disease of native coronary artery without angina pectoris (principal); I11.9 Hypertensive heart disease without heart failure; E66.9 Obesity, unspecified; Z95.5 Presence of coronary angioplasty implant and graft; Z87.74 Personal history of (corrected) congenital malformations of heart and circulatory system; Z98.890 Other specified postprocedural states
CPT/HCPCS: 93308